=== PATIENT | female | born 1970 | race Caucasian/White ===

== ENCOUNTER 2019-02-03 01:37 | Inpatient (IN) | payer MEDICAID ==
[~2019-02-03] VITALS: Ht 160 cm; Wt 118.2 kg
[2019-02-03 03:00] VITALS: BP 153/92
[2019-02-03] MEDS ORDERED: OMEP40CA13 PO (03:00)
[2019-02-03] MEDS ORDERED: POTA8TAB8 PO (03:00)
[2019-02-03] MEDS ORDERED: FURO-149 PO (03:00)
[2019-02-03] MEDS ORDERED: ENAL20TA75 PO (03:00)
[2019-02-03] MEDS ORDERED: HYDR-4353 PO (03:00)
[2019-02-03] MEDS: normal saline 1000ml 1,000 ML IV SCH ×4 (03:06→23:06)
[2019-02-03] MEDS ORDERED: ondansetron/PF 4mg/2ml inj IV PRN (03:10)
[2019-02-03] MEDS ORDERED: potassium CL 10mEq/100ml bag 100 ML IV PRN ×2 (03:10)
[2019-02-03] MEDS ORDERED: mag hydrox/Alum hydrox/simeth 30ml oral suspension PO PRN (03:10)
[2019-02-03] MEDS ORDERED: potassium Cl 20 mEq SR tablet PO PRN ×2 (03:10)
[2019-02-03] MEDS ORDERED: magnesium Cl slow-release 64mg tablet PO PRN (03:10)
[2019-02-03] MEDS ORDERED: magnesium 2GM in 50ml NS 50 ML IV PRN (03:10)
[2019-02-03] MEDS ORDERED: acetaminophen 325mg tablet PO PRN (03:10)
[2019-02-03] MEDS ORDERED: magnesium 4gm in 100ml NS 100 ML IV PRN (03:10)
[2019-02-03] MEDS ORDERED: magnesium hydroxide 30ml (MOM) UD suspension PO PRN (03:10)
[2019-02-03 06:25] LABS: BASOPHILS % (AUTO) 0.3 % (0-1); EOSINOPHILS # (AUTO) 0.1 X10'3 (0-0.9); EOSINOPHILS % (AUTO) 1.1 % (0-6); HEMATOCRIT 35.3 % (35.0-45.0); LYMPHOCYTES # (AUTO) 1.1 X10'3 (1.1-4.8); LYMPHOCYTES % (AUTO) 17.4 % (21-51); MEAN CORPUSCULAR HEMOGLOBIN 33.7 PG (27.0-31.0); MEAN CORPUSCULAR HGB CONC 34.1 g/dL (33.0-36.5); MEAN CORPUSCULAR VOLUME 98.9 FL (78-98); MEAN PLATELET VOLUME 10.2 FL (7.4-10.4); MONOCYTES # (AUTO) 0.6 X10'3 (0-0.9); MONOCYTES % (AUTO) 9.9 % (2-12); NEUTROPHILS # (AUTO) 4.4 X10'3 (1.8-7.7); NEUTROPHILS % (AUTO) 71.3 % (42-75); PLATELET COUNT 84 X10'3 (140-440); RED BLOOD COUNT 3.57 X10'6 (4.20-5.60); RED CELL DISTRIBUTION WIDTH 19.4 % (11.5-14.5); WHITE BLOOD COUNT 6.2 X10'3 (4.5-11.0)
--- NOTE | 2019-02-03 06:26 | NUR ---
Patient in room NICK 358. I have received report from SARAH Villa and had the opportunity to ask questions and assume patient care.
[2019-02-03 06:28] LABS: ALANINE AMINOTRANSFERASE 23 U/L (12-78); ALBUMIN 1.7 G/DL (3.4-5.0); ALBUMIN/GLOBULIN RATIO 0.4 (1.1-1.5); ALKALINE PHOSPHATASE 113 IU/L (46-116); ANION GAP 7 (8-16); ASPARTATE AMINO TRANSFERASE 58 U/L (10-37); BILIRUBIN,TOTAL 3.3 MG/DL (0.1-1.0); BLOOD UREA NITROGEN 9 MG/DL (7-18); BUN/CREATININE RATIO 11.4 (6.6-38.0); CALCIUM 8.1 MG/DL (8.5-10.1); CHLORIDE 111 MMOL/L (99-107); CREATININE 0.79 MG/DL (0.40-0.90); GLUCOSE 88 MG/DL (70-104); POTASSIUM 3.7 MMOL/L (3.5-5.1); SODIUM 143 MMOL/L (135-145); TOTAL CARBON DIOXIDE 24.9 MMOL/L (24-32); TOTAL PROTEIN 6.3 G/DL (6.4-8.2); eGFR 77 ML/MIN
[2019-02-03 07:00] VITALS: BP 99/69
[2019-02-03] MEDS: K and/or MAG REPLACEMENT MC SCH (08:00)
[2019-02-03] MEDS: enoxaparin 40mg/0.4ml syringe SQ SCH (08:00)
[2019-02-03] MEDS: levoFLOXACIN-Levaquin 500mg/D5 100 ML IV SCH (08:57)
[2019-02-03 11:30] VITALS: BP 145/87
--- NOTE | 2019-02-03 13:24 | NUR ---
IR TEAM TO PATIENT BED SIDE SCANNED PATIENT ABD WITH ULTRA SOUND AND FOUND MINIMAL FLUID NOT ENOUGH FOR A PARACENTESIS PER DR ORTEGA FLOOR NURSE INFORMED
--- NOTE | 2019-02-03 18:09 | NUR ---
Problems reprioritized. Patient report given, questions answered & plan of care reviewed with SARAH Villa.
--- NOTE | 2019-02-03 18:56 | NUR ---
Patient in room NICK 358. I have received report from JESSICA SMITH and had the opportunity to ask questions and assume patient care.
[2019-02-03 19:00] VITALS: BP 148/98
--- NOTE | 2019-02-03 21:51 | NUR ---
Patient refused IV solution. She states having difficulty breathing and she is also edematoue bilateral.
[2019-02-04] VITALS: BP 136/79
--- NOTE | 2019-02-04 06:11 | NUR ---
Problems reprioritized. Patient report given, questions answered & plan of care reviewed with Nusrat RN. Patient slept wel and denied having pain. She is sleeping.
--- NOTE | 2019-02-04 06:15 | NUR ---
Patient in room NICK 358. I have received report from SARAH Villa and had the opportunity to ask questions and assume patient care.
[2019-02-04 06:16] LABS: BASOPHILS % (AUTO) 0.6 % (0-1); EOSINOPHILS # (AUTO) 0.1 X10'3 (0-0.9); EOSINOPHILS % (AUTO) 3.5 % (0-6); HEMATOCRIT 34.6 % (35.0-45.0); HEMOGLOBIN 11.6 g/dl (12.0-16.0); LYMPHOCYTES # (AUTO) 0.8 X10'3 (1.1-4.8); LYMPHOCYTES % (AUTO) 22.1 % (21-51); MEAN CORPUSCULAR HEMOGLOBIN 33.4 PG (27.0-31.0); MEAN CORPUSCULAR HGB CONC 33.5 g/dL (33.0-36.5); MEAN CORPUSCULAR VOLUME 99.7 FL (78-98); MEAN PLATELET VOLUME 10.1 FL (7.4-10.4); MONOCYTES # (AUTO) 0.4 X10'3 (0-0.9); MONOCYTES % (AUTO) 10.3 % (2-12); NEUTROPHILS # (AUTO) 2.3 X10'3 (1.8-7.7); NEUTROPHILS % (AUTO) 63.5 % (42-75); PLATELET COUNT 70 X10'3 (140-440); RED BLOOD COUNT 3.47 X10'6 (4.20-5.60); RED CELL DISTRIBUTION WIDTH 19.5 % (11.5-14.5); WHITE BLOOD COUNT 3.6 X10'3 (4.5-11.0)
[2019-02-04 06:24] LABS: ALANINE AMINOTRANSFERASE 21 U/L (12-78); ALBUMIN 1.6 G/DL (3.4-5.0); ALBUMIN/GLOBULIN RATIO 0.4 (1.1-1.5); ALKALINE PHOSPHATASE 105 IU/L (46-116); ANION GAP 5 (8-16); ASPARTATE AMINO TRANSFERASE 56 U/L (10-37); BILIRUBIN,TOTAL 2.7 MG/DL (0.1-1.0); BLOOD UREA NITROGEN 8 MG/DL (7-18); BUN/CREATININE RATIO 11.3 (6.6-38.0); CALCIUM 8.4 MG/DL (8.5-10.1); CHLORIDE 112 MMOL/L (99-107); CREATININE 0.71 MG/DL (0.40-0.90); GLUCOSE 82 MG/DL (70-104); MAGNESIUM 1.6 MG/DL (1.5-2.4); POTASSIUM 3.8 MMOL/L (3.5-5.1); SODIUM 144 MMOL/L (135-145); TOTAL CARBON DIOXIDE 27.2 MMOL/L (24-32); TOTAL PROTEIN 5.9 G/DL (6.4-8.2); eGFR 87 ML/MIN
[2019-02-04 08:00] VITALS: BP 144/77
[2019-02-04] MEDS: enoxaparin 40mg/0.4ml syringe SQ SCH (08:00)
[2019-02-04] MEDS: K and/or MAG REPLACEMENT MC SCH (08:00)
[2019-02-04] MEDS: levoFLOXACIN-Levaquin 500mg/D5 100 ML IV SCH (08:38)
[2019-02-04] MEDS ORDERED: CIPR-230 PO (09:43)
[2019-02-04 12:00] VITALS: BP 142/79
== END 2019-02-04 12:30 | disposition home or self-care (01) | DRG 465 ==
LOC: SUR 3N 01:37
PROVIDERS: ADMIT Family Medicine; ATTEND Internal Medicine
DX: N13.8 Other obstructive and reflux uropathy (principal); I12.0 Hypertensive chronic kidney disease with stage 5 chronic kidney disease or end stage renal disease; D69.59 Other secondary thrombocytopenia; K70.31 Alcoholic cirrhosis of liver with ascites; E66.01 Morbid (severe) obesity due to excess calories; E88.09 Other disorders of plasma-protein metabolism, not elsewhere classified; N18.6 End stage renal disease; K72.90 Hepatic failure, unspecified without coma; K80.20 Calculus of gallbladder without cholecystitis without obstruction; Z68.42 Body mass index [BMI] 45.0-49.9, adult; N20.0 Calculus of kidney; G47.33 Obstructive sleep apnea (adult) (pediatric); K21.9 Gastro-esophageal reflux disease without esophagitis; N13.9 Obstructive and reflux uropathy, unspecified; Z79.899 Other long term (current) drug therapy; Z80.0 Family history of malignant neoplasm of digestive organs; Z80.3 Family history of malignant neoplasm of breast; Z80.51 Family history of malignant neoplasm of kidney; Z80.52 Family history of malignant neoplasm of bladder; Z82.49 Family history of ischemic heart disease and other diseases of the circulatory system; Z90.710 Acquired absence of both cervix and uterus; Z80.9 Family history of malignant neoplasm, unspecified
CPT/HCPCS: 36415; 74018; 76705; 80053; 83735; 85025; 87081; 93971; G0378; J1956; J7030

== ENCOUNTER 2019-10-27 21:34 | Inpatient (IN) | payer MEDICAID ==
[~2019-10-27] VITALS: Ht 157.5 cm; Wt 97.7 kg
[~2019-10-27 21:34] MED LIST: ENAL20TA75 PO; FURO-149 PO; HYDR-4353 PO; OMEP40CA13 PO; POTA8TAB8 PO
--- NOTE | 2019-10-27 22:17 | NUR ---
VINICIUS WALLACE [phone]
[2019-10-27 22:27] LABS: BASOPHILS % (AUTO) 0.3 % (0-1); EOSINOPHILS % (AUTO) 0.5 % (0-6); HEMATOCRIT 34.1 % (35.0-45.0); HEMOGLOBIN 11.1 g/dl (12.0-16.0); LYMPHOCYTES # (AUTO) 0.4 X10'3 (1.1-4.8); LYMPHOCYTES % (AUTO) 6.7 % (21-51); MEAN CORPUSCULAR HEMOGLOBIN 31.2 PG (27.0-31.0); MEAN CORPUSCULAR HGB CONC 32.6 g/dL (33.0-36.5); MEAN CORPUSCULAR VOLUME 95.7 FL (78-98); MONOCYTES # (AUTO) 0.5 X10'3 (0-0.9); MONOCYTES % (AUTO) 7.2 % (2-12); NEUTROPHILS # (AUTO) 5.6 X10'3 (1.8-7.7); NEUTROPHILS % (AUTO) 85.3 % (42-75); PLATELET COUNT 81 X10'3 (140-440); RED BLOOD COUNT 3.57 X10'6 (4.20-5.60); RED CELL DISTRIBUTION WIDTH 18.5 % (11.5-14.5); WHITE BLOOD COUNT 6.6 X10'3 (4.5-11.0)
[2019-10-27 22:41] LABS: ALANINE AMINOTRANSFERASE 19 U/L (12-78); ALBUMIN 2.3 G/DL (3.4-5.0); ALKALINE PHOSPHATASE 111 IU/L (46-116); ANION GAP 7 (8-16); ASPARTATE AMINO TRANSFERASE 37 U/L (10-37); BILIRUBIN,TOTAL 5.3 MG/DL (0.1-1.0); BLOOD UREA NITROGEN 10 MG/DL (7-18); BUN/CREATININE RATIO 9.9 (6.6-38.0); CALCIUM 8.5 MG/DL (8.5-10.1); CHLORIDE 109 MMOL/L (99-107); CREATININE 1.01 MG/DL (0.40-0.90); GLUCOSE 105 MG/DL (70-104); POTASSIUM 4.2 MMOL/L (3.5-5.1); SODIUM 139 MMOL/L (135-145); TOTAL CARBON DIOXIDE 23.1 MMOL/L (24-32); eGFR 58 ML/MIN
[2019-10-27 22:47] LABS: ALBUMIN/GLOBULIN RATIO 0.5 (1.1-1.5); MAGNESIUM 1.6 MG/DL (1.5-2.4)
[2019-10-27] MEDS ORDERED: SPIR50TA5 PO (23:01)
[2019-10-27] MEDS ORDERED: DIPH25CA83 PO (23:01)
[2019-10-27] MEDS ORDERED: HYDROcodone/acetaminophen 10/325mg tab PO ONE (23:30)
[2019-10-28] MEDS ORDERED: ondansetron/PF 4mg/2ml inj IV PRN
[2019-10-28] MEDS ORDERED: ipratropium/albuterol 3ml nebule NEB PRN
[2019-10-28] MEDS ORDERED: acetaminophen 325mg tablet PO PRN ×2
[2019-10-28] MEDS ORDERED: potassium Cl 20 mEq SR tablet PO PRN ×2
[2019-10-28] MEDS ORDERED: magnesium hydroxide 30ml (MOM) UD suspension PO PRN
[2019-10-28] MEDS ORDERED: HYDROcodone/acetaminophen 5mg/325mg tablet PO PRN
[2019-10-28] MEDS ORDERED: mag hydrox/Alum hydrox/simeth 30ml oral suspension PO PRN
[2019-10-28] MEDS ORDERED: potassium CL 10mEq/100ml bag 100 ML IV PRN ×2
[2019-10-28 00:55] VITALS: BP 129/73
--- NOTE | 2019-10-28 00:55 | NUR ---
PATIENT ADMITTED TO ROOM 348A FROM ER FOR LARGE LEFT PLEURAL EFFUSION. PLACED COMFORTABLE IN BED VITAL SIGNS TAKEN AND RECORDED.
[2019-10-28] MEDS: piperacillin/tazo 3.375gm/50ml 50 ML IV SCH ×3 (01:29→16:22)
--- NOTE | 2019-10-28 03:30 | NUR ---
Patient in room NICK 348. I have received report from deanne Ortiz Rn and had the opportunity to ask questions and assume patient care. Addendum: 10/28/19 at 0409 by Estella Eldridge RN Amended: Links added.
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
--- NOTE | 2019-10-28 05:47 | NUR ---
resting eyes closed no changes.
[2019-10-28 06:02] LABS: BASOPHILS % (AUTO) 0.2 % (0-1); EOSINOPHILS # (AUTO) 0.1 X10'3 (0-0.9); HEMATOCRIT 30.2 % (35.0-45.0); HEMOGLOBIN 9.9 g/dl (12.0-16.0); LYMPHOCYTES # (AUTO) 0.3 X10'3 (1.1-4.8); LYMPHOCYTES % (AUTO) 5.5 % (21-51); MEAN CORPUSCULAR HEMOGLOBIN 31.4 PG (27.0-31.0); MEAN CORPUSCULAR HGB CONC 32.8 g/dL (33.0-36.5); MEAN CORPUSCULAR VOLUME 95.8 FL (78-98); MEAN PLATELET VOLUME 9.1 FL (7.4-10.4); MONOCYTES # (AUTO) 0.5 X10'3 (0-0.9); MONOCYTES % (AUTO) 9.5 % (2-12); NEUTROPHILS # (AUTO) 4.7 X10'3 (1.8-7.7); NEUTROPHILS % (AUTO) 83.8 % (42-75); PLATELET COUNT 65 X10'3 (140-440); RED BLOOD COUNT 3.16 X10'6 (4.20-5.60); RED CELL DISTRIBUTION WIDTH 18.8 % (11.5-14.5); WHITE BLOOD COUNT 5.6 X10'3 (4.5-11.0)
--- NOTE | 2019-10-28 06:15 | NUR ---
Patient in room NICK 348. I have received report from SARAH Soria and had the opportunity to ask questions and assume patient care.
[2019-10-28 06:30] VITALS: BP 137/86
--- NOTE | 2019-10-28 06:40 | NUR ---
Problems reprioritized. Patient report given, questions answered & plan of care reviewed with BERTHA SMITH. Addendum: 10/28/19 at 0641 by Estella Eldridge RN Amended: Links added.
[2019-10-28 06:44] LABS: ALANINE AMINOTRANSFERASE 19 U/L (12-78); ALKALINE PHOSPHATASE 96 IU/L (46-116); ANION GAP 9 (8-16); ASPARTATE AMINO TRANSFERASE 32 U/L (10-37); BILIRUBIN,TOTAL 4.9 MG/DL (0.1-1.0); BLOOD UREA NITROGEN 11 MG/DL (7-18); C-REACTIVE PROTEIN 1.06 MG/DL (0.0-0.5); CALCIUM 8.5 MG/DL (8.5-10.1); CHLORIDE 108 MMOL/L (99-107); CREATININE 0.92 MG/DL (0.40-0.90); GLUCOSE 119 MG/DL (70-104); LACTATE DEHYDROGENASE 209 U/L (81-234); SODIUM 138 MMOL/L (135-145); TOTAL CARBON DIOXIDE 21.2 MMOL/L (24-32); eGFR 65 ML/MIN
[2019-10-28 07:00] LABS: ALBUMIN/GLOBULIN RATIO 0.5 (1.1-1.5); TOTAL PROTEIN 6.3 G/DL (6.4-8.2)
[2019-10-28] MEDS: pantoprazole 40mg Tablet.DR PO SCH (08:34)
[2019-10-28] MEDS: spironolactone 50 MG tablet PO SCH (08:35)
[2019-10-28] MEDS: HYDROcodone/acetaminophen 10/325mg tab PO PRN ×2 (08:36→13:24)
[2019-10-28] MEDS: K and/or MAG REPLACEMENT MC SCH ×2 (09:15→20:54)
[2019-10-28] MEDS ORDERED: magnesium Cl slow-release 64mg tablet PO PRN (09:50)
[2019-10-28] MEDS ORDERED: phytonadione inj. 10 MG in normal saline 100ml IV soln 99 ML IV ONE (09:50)
[2019-10-28] MEDS ORDERED: K and/or MAG REPLACEMENT MC SCH (09:50)
[2019-10-28] MEDS ORDERED: magnesium 4gm in 100ml NS 100 ML IV PRN (09:50)
[2019-10-28] MEDS ORDERED: pneumococcal 23-VAL P-sac vacc 25 mcg/0.5ml vial IMVAC ONE (10:00)
[2019-10-28] MEDS: azithromycin 250mg tablet PO SCH (10:56)
[2019-10-28 11:00] VITALS: BP 143/88
[2019-10-28 11:08] VITALS: BP 157/94
[2019-10-28 11:20] VITALS: BP 143/88
[2019-10-28 12:01] LABS: GLUCOSE,BODY FLUID 119 MG/DL; LDH,BODY FLUID 42 U/L
[2019-10-28 12:11] LABS: BFSOURCE LEFT PLEURAL FLD; PLEURAL FLUID PH 7.507 (7.63-7.65)
[2019-10-28 12:12] LABS: BF RBC COUNT 7275 /CU MM; BF WBC COUNT 88 /CU MM (0-1000); BFAPPEAR CLOUDY; BFCOLOR AMBER; BFVOLUME 55 ML
[2019-10-28 12:21] LABS: LYMPHOCYTES,BODY FLUID 60 %; MONOCYTES,BODY FLUID 35 %; NEUTROPHILS,BODY FLUID 5 %
[2019-10-28 12:22] LABS: BF MESOTHELIAL CELLS MODERATE; TOTAL PROTEIN,BODY FLUID < 2.0 G/DL
[2019-10-28 18:00] VITALS: BP 149/90
--- NOTE | 2019-10-28 18:30 | NUR ---
Problems reprioritized. Patient report given, questions answered & plan of care reviewed with SARAH Jim.
[2019-10-28] MEDS ORDERED: diphenhydrAMINE 25mg capsule PO SCH (21:00)
[2019-10-28] MEDS: lactobacillus rhamnosus 10,000 MMU CELLS/CAPSULE PO SCH (21:08)
[2019-10-29] VITALS: BP 118/67
[2019-10-29] MEDS: piperacillin/tazo 3.375gm/50ml 50 ML IV SCH ×2 (00:24→08:09)
[2019-10-29 05:10] LABS: BASOPHILS % (AUTO) 0.8 % (0-1); EOSINOPHILS # (AUTO) 0.3 X10'3 (0-0.9); EOSINOPHILS % (AUTO) 8.2 % (0-6); HEMATOCRIT 27.3 % (35.0-45.0); HEMOGLOBIN 8.9 g/dl (12.0-16.0); LYMPHOCYTES # (AUTO) 0.7 X10'3 (1.1-4.8); LYMPHOCYTES % (AUTO) 19.5 % (21-51); MEAN CORPUSCULAR HEMOGLOBIN 30.9 PG (27.0-31.0); MEAN CORPUSCULAR HGB CONC 32.7 g/dL (33.0-36.5); MEAN CORPUSCULAR VOLUME 94.3 FL (78-98); MONOCYTES # (AUTO) 0.5 X10'3 (0-0.9); MONOCYTES % (AUTO) 14.6 % (2-12); NEUTROPHILS % (AUTO) 56.9 % (42-75); PLATELET COUNT 56 X10'3 (140-440); RED BLOOD COUNT 2.89 X10'6 (4.20-5.60); RED CELL DISTRIBUTION WIDTH 18.6 % (11.5-14.5); WHITE BLOOD COUNT 3.6 X10'3 (4.5-11.0)
[2019-10-29 05:20] LABS: ALANINE AMINOTRANSFERASE 14 U/L (12-78); ALBUMIN 1.8 G/DL (3.4-5.0); ALBUMIN/GLOBULIN RATIO 0.5 (1.1-1.5); ALKALINE PHOSPHATASE 93 IU/L (46-116); ANION GAP 3 (8-16); ASPARTATE AMINO TRANSFERASE 27 U/L (10-37); BILIRUBIN,TOTAL 3.7 MG/DL (0.1-1.0); BLOOD UREA NITROGEN 9 MG/DL (7-18); BUN/CREATININE RATIO 10.8 (6.6-38.0); CALCIUM 8.4 MG/DL (8.5-10.1); CHLORIDE 109 MMOL/L (99-107); CREATININE 0.83 MG/DL (0.40-0.90); GLUCOSE 89 MG/DL (70-104); MAGNESIUM 1.6 MG/DL (1.5-2.4); PHOSPHORUS 2.2 MG/DL (2.3-4.5); POTASSIUM 3.7 MMOL/L (3.5-5.1); SODIUM 138 MMOL/L (135-145); TOTAL CARBON DIOXIDE 26.5 MMOL/L (24-32); TOTAL PROTEIN 5.6 G/DL (6.4-8.2); eGFR 73 ML/MIN
--- NOTE | 2019-10-29 06:26 | NUR ---
Problems reprioritized. Patient report given, questions answered & plan of care reviewed with Airam SMITH. Addendum: 10/29/19 at 0627 by Diandra Mendoza RN Amended: Links added.
[2019-10-29 06:30] VITALS: BP 125/75
--- NOTE | 2019-10-29 06:30 | NUR ---
Patient in room NICK 348. I have received report from SARAH Jim and had the opportunity to ask questions and assume patient care.
[2019-10-29] MEDS: K and/or MAG REPLACEMENT MC SCH (06:36)
[2019-10-29] MEDS: spironolactone 50 MG tablet PO SCH (08:09)
[2019-10-29] MEDS: lactobacillus rhamnosus 10,000 MMU CELLS/CAPSULE PO SCH (08:09)
[2019-10-29] MEDS: pantoprazole 40mg Tablet.DR PO SCH (08:09)
[2019-10-29] MEDS: azithromycin 250mg tablet PO SCH (08:10)
--- NOTE | 2019-10-29 09:30 | NUR ---
Problems reprioritized. Patient report given, questions answered & plan of care reviewed with SARAH Leon.
[2019-10-29 11:00] VITALS: BP 120/70
[2019-10-29] MEDS ORDERED: LACT1CAP26 PO (12:11)
[2019-10-29] MEDS ORDERED: AZI25OT PO (12:11)
[2019-10-29] MEDS ORDERED: AMOX-419 PO (12:11)
[2019-10-29] MEDS ORDERED: PHYT100T PO (12:13)
--- NOTE | 2019-10-29 15:18 | NUR ---
DC INSTRUCTIONS GIVEN, IV REMOVED, PT TOLERATED WELL, NO COMPLICATION. IS AND FLUTTER VALVE GIVEN TO PT AND EDUCATED ON USE, PT DC IN STABLE CONDITION
[2019-10-29] MEDS ORDERED: PROP10TA10 PO (18:02)
== END 2019-10-29 15:15 | disposition home or self-care (01) | DRG 720 ==
LOC: ER 21:34 → ED HOLD 23:59 → SUR 3N 10-28 00:50
PROVIDERS: ADMIT Family Medicine; ATTEND Family Medicine
PROC: 0W9B3ZZ Drainage of Left Pleural Cavity, Percutaneous Approach (ICD-10-PCS; principal; 2019-10-27)
DX: A41.9 Sepsis, unspecified organism (principal); J96.01 Acute respiratory failure with hypoxia; J91.8 Pleural effusion in other conditions classified elsewhere; J18.9 Pneumonia, unspecified organism; D68.9 Coagulation defect, unspecified; E44.0 Moderate protein-calorie malnutrition; K76.6 Portal hypertension; D69.59 Other secondary thrombocytopenia; I11.0 Hypertensive heart disease with heart failure; I50.9 Heart failure, unspecified; F10.20 Alcohol dependence, uncomplicated; G47.33 Obstructive sleep apnea (adult) (pediatric); K21.9 Gastro-esophageal reflux disease without esophagitis; Z20.828 Contact with and (suspected) exposure to other viral communicable diseases; K44.9 Diaphragmatic hernia without obstruction or gangrene; K70.30 Alcoholic cirrhosis of liver without ascites; K72.90 Hepatic failure, unspecified without coma; N13.9 Obstructive and reflux uropathy, unspecified; Z79.899 Other long term (current) drug therapy; Z80.0 Family history of malignant neoplasm of digestive organs; Z80.3 Family history of malignant neoplasm of breast; Z80.51 Family history of malignant neoplasm of kidney; Z80.52 Family history of malignant neoplasm of bladder; Z82.49 Family history of ischemic heart disease and other diseases of the circulatory system; Z87.442 Personal history of urinary calculi; Z90.710 Acquired absence of both cervix and uterus; Z28.21 Immunization not carried out because of patient refusal; Z88.5 Allergy status to narcotic agent; Z91.040 Latex allergy status; Z98.51 Tubal ligation status; Z68.39 Body mass index [BMI] 39.0-39.9, adult
CPT/HCPCS: 32555; 36415; 71045; 80053; 82945; 83605; 83615; 83735; 83880; 83986; 84100; 84145; 84157; 84484; 85025; 85610; 86140; 87040; 87070; 87075; 87081; 87102; 89051; 90732; 94760; 97110; 97161; 97530; 99285; G0378; J2543; J3430; Q0163

== ENCOUNTER 2020-02-11 12:34 | Inpatient (IN) | payer MEDICAID ==
[~2020-02-11] VITALS: Ht 157.5 cm; Wt 112.5 kg
[~2020-02-11 12:34] MED LIST changes: +AZI25OT PO; +DIPH25CA83 PO; -ENAL20TA75 PO; +LACT1CAP26 PO; +PHYT100T PO; -POTA8TAB8 PO; +PROP10TA10 PO; +SPIR50TA5 PO
[2020-02-11 13:28] LABS: ALANINE AMINOTRANSFERASE 43 U/L (12-78); ALBUMIN 2.2 G/DL (3.4-5.0); ALKALINE PHOSPHATASE 127 IU/L (46-116); ANION GAP 6 (8-16); ASPARTATE AMINO TRANSFERASE 48 U/L (10-37); BILIRUBIN,TOTAL 8.9 MG/DL (0.1-1.0); BLOOD UREA NITROGEN 13 MG/DL (7-18); BUN/CREATININE RATIO 10.7 (6.6-38.0); CALCIUM 9.4 MG/DL (8.5-10.1); CHLORIDE 98 MMOL/L (99-107); CREATININE 1.22 MG/DL (0.40-0.90); GLUCOSE 106 MG/DL (70-104); POTASSIUM 4.3 MMOL/L (3.5-5.1); SODIUM 130 MMOL/L (135-145); TOTAL CARBON DIOXIDE 26.3 MMOL/L (24-32); eGFR 47 ML/MIN
[2020-02-11 13:36] LABS: TROPONIN I < 0.04 NG/ML (0.0-0.05)
[2020-02-11 13:37] LABS: ALBUMIN/GLOBULIN RATIO 0.5 (1.1-1.5); TOTAL PROTEIN 6.7 G/DL (6.4-8.2)
[2020-02-11] MEDS ORDERED: ondansetron/PF 4mg/2ml inj IV ONE (13:50)
[2020-02-11] MEDS ORDERED: fentaNYL/PF 50MCG/1 ML 2ML syringe IV ONE ×2 (13:50→15:25)
[2020-02-11 13:56] LABS: LYMPHOCYTES # (AUTO) 0.4 X10'3 (1.1-4.8); LYMPHOCYTES % (AUTO) 2.6 % (21-51); MEAN PLATELET VOLUME 9.9 FL (7.4-10.4); NEUTROPHILS # (AUTO) 12.7 X10'3 (1.8-7.7)
[2020-02-11 13:57] LABS: BASOPHILS % (AUTO) 0.1 % (0-1); EOSINOPHILS % (AUTO) 0.2 % (0-6); HEMATOCRIT 35.3 % (35.0-45.0); HEMOGLOBIN 11.8 g/dl (12.0-16.0); MEAN CORPUSCULAR HEMOGLOBIN 34.2 PG (27.0-31.0); MEAN CORPUSCULAR HGB CONC 33.5 g/dL (33.0-36.5); MEAN CORPUSCULAR VOLUME 102.1 FL (78-98); MONOCYTES # (AUTO) 1.1 X10'3 (0-0.9); MONOCYTES % (AUTO) 7.7 % (2-12); NEUTROPHILS % (AUTO) 89.4 % (42-75); PLATELET COUNT 67 X10'3 (140-440); RED BLOOD COUNT 3.46 X10'6 (4.20-5.60); RED CELL DISTRIBUTION WIDTH 24.5 % (11.5-14.5); WHITE BLOOD COUNT 14.2 X10'3 (4.5-11.0)
[2020-02-11 14:13] LABS: ANISOCYTOSIS 3+; PLATELET ESTIMATE DECREASED; TOTAL CELLS COUNTED 100
[2020-02-11 14:14] LABS: BURR CELLS 1+; POLYCHROMASIA 1+; ROULEAUX 1+; TARGET CELLS FEW; TOXIC GRANULATION 1+; TOXIC VACUOLATION FEW
--- NOTE | 2020-02-11 16:54 | NUR ---
Notified [facility] of BP of 79/42 as well as continued severe pain. Albumin to be ordered for BP. Pain medication to be addressed as soon as BP improves.
[2020-02-11] MEDS ORDERED: LORazepam 2 mg/ml vial IV ONE (16:55)
[2020-02-11] MEDS ORDERED: albumin (human) 25% 100 ML IV solution IV ONE (16:55)
[2020-02-11] MEDS ORDERED: CefTRIAXone/D5W-Rocephin 1gm 50 ML IV ONE (17:20)
[2020-02-11 17:26] LABS: CLARITY,URINE CLOUDY (Clear); COLOR,URINE BROWN (Yellow); GLUCOSE, URINE NEGATIVE (Neg); KETONES,URINE NEGATIVE (Neg); LEUKOCYTE ESTERASE ,URINE MODERATE (Neg); NITRITES, URINE NEGATIVE (Neg); OCCULT BLOOD,URINE LARGE (Neg); PH,URINE 5.5 (4.8-8.0); PROTEIN,URINE 100 mg/dl (Neg)
[2020-02-11 17:27] LABS: UA COLLECTION TYPE OTHER
[2020-02-11 17:32] LABS: BACTERIA,URINE 2+ /HPF (Neg); CAL OXALATE CRYSTALS 2+ /HPF (NEGATIVE); MUCUS STRANDS MODERATE /LPF (Neg); RBC,URINE TNTC /HPF (0-2); SQUAMOUS EPITHELIAL CELL,UR MANY /LPF (FEW); WBC CLUMPS,URINE MODERATE /HPF (NEGATIVE); WBC,URINE TNTC /HPF (0-4)
[2020-02-11] MEDS ORDERED: potassium CL 10mEq/100ml bag 100 ML IV PRN ×2 (17:40)
[2020-02-11] MEDS ORDERED: magnesium Cl slow-release 64mg tablet PO PRN (17:40)
[2020-02-11] MEDS ORDERED: ondansetron/PF 4mg/2ml inj IV PRN (17:40)
[2020-02-11] MEDS ORDERED: mag hydrox/Alum hydrox/simeth 30ml oral suspension PO PRN (17:40)
[2020-02-11] MEDS ORDERED: bisacodyl 10mg suppository rectal RC PRN (17:40)
[2020-02-11] MEDS ORDERED: metoclopramide 5 mg/ml inj IV PRN (17:40)
[2020-02-11] MEDS ORDERED: magnesium hydroxide 30ml (MOM) UD suspension PO PRN (17:40)
[2020-02-11] MEDS ORDERED: magnesium 2GM in 50ml NS 50 ML IV PRN (17:40)
[2020-02-11] MEDS ORDERED: magnesium 4gm in 100ml NS 100 ML IV PRN (17:40)
[2020-02-11] MEDS ORDERED: potassium Cl 20 mEq SR tablet PO PRN ×2 (17:40)
[2020-02-11] MEDS: HYDROmorphone inj. 0.5 MG/0.5 ML DISP.SYRIN IV PRN (19:05)
--- NOTE | 2020-02-11 19:30 | NUR ---
Patient in room PCU 3015. I have received report from Cap RN and had the opportunity to ask questions and assume patient care.
--- NOTE | 2020-02-11 19:45 | NUR ---
Patient arrived on unit Alert and oriented and in extreme pain. Telemetry monitoring applied and vital signs obtained- hr 86, 25 RR, 98% O2, 116/62, temp 98.4 Will continue to monitor and assess closely.
[2020-02-11] MEDS: K and/or MAG REPLACEMENT MC SCH (20:00)
[2020-02-11] MEDS ORDERED: propranolol 10mg tablet PO SCH (20:00)
[2020-02-11] MEDS ORDERED: SUCR1TAB PO (20:24)
[2020-02-11] MEDS ORDERED: MELA10TA2 PO (20:25)
[2020-02-11] MEDS ORDERED: FERR-106 PO (20:26)
[2020-02-11] MEDS ORDERED: LACT10SO PO (20:27)
[2020-02-11] MEDS: furosemide 20 MG/2 ML vial IV SCH (20:35)
[2020-02-11] MEDS: lactobacillus rhamnosus 10,000 MMU CELLS/CAPSULE PO SCH (20:35)
[2020-02-11] MEDS ORDERED: diphenhydrAMINE 25mg capsule PO SCH (21:00)
[2020-02-11] MEDS ORDERED: temazepam 15mg capsule PO PRN (21:00)
[2020-02-11 22:00] VITALS: BP 105/60
[2020-02-11] MEDS: HYDROmorphone 1 mg/ml syringe IV PRN (23:47)
[2020-02-12] VITALS (8 sets, daily range): BP systolic 93–111; BP diastolic 41–73
--- NOTE | 2020-02-12 00:27 | NUR ---
Patient got up to urinate and upon emptying the commode the urine appeared red/brown sludgey. Patient stated did not have bowel movement. Notified Dr Boss. Will continue to monitor closely. PAGER ID: [phone] MESSAGE: [id number] [place] Patient urine is dark red/brown and sludgey. Pt stated current kidney stone and UTI. Just wanted to inform you! Suyapa SMITH ext [phone]
[2020-02-12] MEDS: HYDROmorphone 1 mg/ml syringe IV PRN ×2 (04:10→09:37)
--- NOTE | 2020-02-12 06:00 | NUR ---
Patient in room PCU 3015. I have received report from jefferson and had the opportunity to ask questions and assume patient care.
--- NOTE | 2020-02-12 06:20 | NUR ---
Problems reprioritized. Patient report given, questions answered & plan of care reviewed with Alice SMITH and Teresita SMITH.
[2020-02-12 06:31] LABS: HEMOGLOBIN 10.7 g/dl (12.0-16.0); LYMPHOCYTES # (AUTO) 0.6 X10'3 (1.1-4.8); MEAN CORPUSCULAR HEMOGLOBIN 35.5 PG (27.0-31.0)
[2020-02-12 06:32] LABS: BASOPHILS # (AUTO) 0.1 X10'3 (0-0.2); BASOPHILS % (AUTO) 0.4 % (0-1); EOSINOPHILS % (AUTO) 0.1 % (0-6); HEMATOCRIT 31.2 % (35.0-45.0); MEAN CORPUSCULAR HGB CONC 34.2 g/dL (33.0-36.5); MEAN CORPUSCULAR VOLUME 103.6 FL (78-98); MEAN PLATELET VOLUME 9.8 FL (7.4-10.4); MONOCYTES # (AUTO) 0.8 X10'3 (0-0.9); MONOCYTES % (AUTO) 5.6 % (2-12); NEUTROPHILS # (AUTO) 13.1 X10'3 (1.8-7.7); NEUTROPHILS % (AUTO) 89.9 % (42-75); PLATELET COUNT 54 X10'3 (140-440); RED BLOOD COUNT 3.02 X10'6 (4.20-5.60); WHITE BLOOD COUNT 14.6 X10'3 (4.5-11.0)
[2020-02-12 06:55] LABS: ALANINE AMINOTRANSFERASE 34 U/L (12-78); ALBUMIN 2.2 G/DL (3.4-5.0); ALKALINE PHOSPHATASE 95 IU/L (46-116); ANION GAP 8 (8-16); ASPARTATE AMINO TRANSFERASE 37 U/L (10-37); BILIRUBIN,TOTAL 11.7 MG/DL (0.1-1.0); BLOOD UREA NITROGEN 25 MG/DL (7-18); BUN/CREATININE RATIO 17.4 (6.6-38.0); CALCIUM 9.7 MG/DL (8.5-10.1); CHLORIDE 97 MMOL/L (99-107); CREATININE 1.44 MG/DL (0.40-0.90); GLUCOSE 119 MG/DL (70-104); MAGNESIUM 2.1 MG/DL (1.5-2.4); POTASSIUM 4.8 MMOL/L (3.5-5.1); SODIUM 128 MMOL/L (135-145); TOTAL CARBON DIOXIDE 22.7 MMOL/L (24-32); eGFR 39 ML/MIN
[2020-02-12 06:58] LABS: ALBUMIN/GLOBULIN RATIO 0.6 (1.1-1.5); TOTAL PROTEIN 6.1 G/DL (6.4-8.2)
[2020-02-12 07:38] LABS: ANISOCYTOSIS 3+; PLATELET ESTIMATE DECREASED
[2020-02-12] MEDS: K and/or MAG REPLACEMENT MC SCH ×2 (08:00→20:00)
[2020-02-12] MEDS: furosemide 20 MG/2 ML vial IV SCH ×2 (09:24→19:45)
[2020-02-12] MEDS: CefTRIAXone/D5W-Rocephin 1gm 50 ML IV SCH (09:24)
[2020-02-12] MEDS: lactobacillus rhamnosus 10,000 MMU CELLS/CAPSULE PO SCH ×2 (09:25→19:44)
[2020-02-12] MEDS: pantoprazole 40mg Tablet.DR PO SCH (09:25)
[2020-02-12] MEDS: spironolactone 50 MG tablet PO SCH (09:26)
--- NOTE | 2020-02-12 11:00 | NUR ---
Malnutrition Consult: Pt admit w/ end stage liver disease, ascites, hx etoh cirrhosis DX pleural effusion s/p 1200cc thoracentesis per MD. S/p paracentesis today pending procedure note for volume taken. Pt has mild weakness, skin intact, BMI 44 w/ no scaled wt this admit or accurate scaled wt hx, and PO pending at this time. BLE 3+ edema present only criteria for malnutrition at this time; pt at higher risk for nutrition deficiency given DX. At this time pt does not meet minimum malnutrition criteria. Will recommend ensure high protein TIDWM for additional protein needs and monitor for PO hx as well as additional criteria this admit. MD notified. Addendum: 02/12/20 at [address] Amended: Links added. Addendum: 02/12/20 at [address] F/u: MCV 103.6; SULLY ayala/w RN regarding folic and B12 supplementation if MD agreeable
[2020-02-12] MEDS ORDERED: albumin (human) 25% 100 ML IV solution IV ONE (11:30)
--- NOTE | 2020-02-12 12:58 | NUR ---
promotional table spacer PAGER ID: [phone] MESSAGE: Maverick 369MisaNick. Positive Blood culture aerobic bottle, gram + cocci in pairs, R arm drawn on 02/10. Thank you, Teresita
--- NOTE | 2020-02-12 18:17 | NUR ---
Problems reprioritized. Patient report given, questions answered & plan of care reviewed with Suyapa SMITH. Patient stable at transfer of care.
--- NOTE | 2020-02-12 18:20 | NUR ---
Orientee documentation: I have reviewed and agree with interventions, assessments performed and documented by Alice SMITH. Orientee Medication Administration: For this medication-pass time frame, medication were reviewed, dispensed, administered and documented per hospital policy by Alice SMITH .
--- NOTE | 2020-02-12 18:21 | NUR ---
Problems reprioritized. Patient report given, questions answered & plan of care reviewed with Suyapa.
--- NOTE | 2020-02-12 19:09 | NUR ---
Patient in room PCU 3015. I have received report from Teresita SMITH and Alice SMITH and had the opportunity to ask questions and assume patient care.
[2020-02-12] MEDS: HYDROmorphone inj. 0.5 MG/0.5 ML DISP.SYRIN IV PRN (22:23)
[2020-02-12 23:13] LABS: CLARITY,URINE CLOUDY (Clear); COLOR,URINE AMBER (Yellow); GLUCOSE, URINE NEGATIVE (Neg); KETONES,URINE NEGATIVE (Neg); LEUKOCYTE ESTERASE ,URINE MODERATE (Neg); NITRITES, URINE NEGATIVE (Neg); OCCULT BLOOD,URINE LARGE (Neg); PH,URINE 5.5 (4.8-8.0); PROTEIN,URINE 100 mg/dl (Neg)
[2020-02-12 23:22] LABS: UA COLLECTION TYPE URINAL
[2020-02-12 23:24] LABS: RBC,URINE TNTC /HPF (0-2); WBC,URINE 30-50 /HPF (0-4)
[2020-02-12 23:25] LABS: BACTERIA,URINE 1+ /HPF (Neg); MUCUS STRANDS FEW /LPF (Neg); SQUAMOUS EPITHELIAL CELL,UR FEW /LPF (FEW)
[2020-02-13 02:00] VITALS: BP 98/44
[2020-02-13 05:34] LABS: BASOPHILS % (AUTO) 0.3 % (0-1); EOSINOPHILS # (AUTO) 0.1 X10'3 (0-0.9); EOSINOPHILS % (AUTO) 1.7 % (0-6); HEMATOCRIT 26.8 % (35.0-45.0); HEMOGLOBIN 9.2 g/dl (12.0-16.0); LYMPHOCYTES # (AUTO) 0.4 X10'3 (1.1-4.8); MEAN CORPUSCULAR HEMOGLOBIN 35.2 PG (27.0-31.0); MEAN CORPUSCULAR HGB CONC 34.3 g/dL (33.0-36.5); MEAN CORPUSCULAR VOLUME 102.9 FL (78-98); MEAN PLATELET VOLUME 9.9 FL (7.4-10.4); MONOCYTES # (AUTO) 0.6 X10'3 (0-0.9); NEUTROPHILS # (AUTO) 4.3 X10'3 (1.8-7.7); RED BLOOD COUNT 2.61 X10'6 (4.20-5.60); WHITE BLOOD COUNT 5.5 X10'3 (4.5-11.0)
[2020-02-13 05:37] LABS: ALANINE AMINOTRANSFERASE 26 U/L (12-78); ALBUMIN/GLOBULIN RATIO 0.6 (1.1-1.5); ALKALINE PHOSPHATASE 83 IU/L (46-116); ANION GAP 3 (8-16); ASPARTATE AMINO TRANSFERASE 26 U/L (10-37); BILIRUBIN,TOTAL 6.5 MG/DL (0.1-1.0); BLOOD UREA NITROGEN 29 MG/DL (7-18); BUN/CREATININE RATIO 15.6 (6.6-38.0); CALCIUM 9.4 MG/DL (8.5-10.1); CHLORIDE 98 MMOL/L (99-107); CREATININE 1.86 MG/DL (0.40-0.90); GLUCOSE 96 MG/DL (70-104); POTASSIUM 4.6 MMOL/L (3.5-5.1); SODIUM 128 MMOL/L (135-145); TOTAL CARBON DIOXIDE 26.7 MMOL/L (24-32); TOTAL PROTEIN 5.1 G/DL (6.4-8.2); eGFR 29 ML/MIN
[2020-02-13 05:49] LABS: PLATELET COUNT 43 X10'3 (140-440)
--- NOTE | 2020-02-13 05:51 | NUR ---
Dr Boss paged PAGER ID: [phone] MESSAGE: [id number] [address] Critical lab value- ptt 43 Suyapa SMITH PCU
--- NOTE | 2020-02-13 05:53 | NUR ---
PAGER ID: [phone] MESSAGE: [id number] [address] Correction for critical- it was for platlets not ptt. Suyapa SMITH
--- NOTE | 2020-02-13 06:04 | NUR ---
Problems reprioritized. Patient report given, questions answered & plan of care reviewed with Teresita SMITH and Alice SMITH.
[2020-02-13 06:41] LABS: PLATELET ESTIMATE DECREASED
[2020-02-13 06:42] LABS: ANISOCYTOSIS 3+
--- NOTE | 2020-02-13 06:49 | NUR ---
Rm 3015A, Nick. DAVID pos. blood culture, anaerobic gram+ cocci in chains. PT. currently on Rocephin. Alcie [phone]
[2020-02-13 07:00] VITALS: BP 98/55
[2020-02-13] MEDS: K and/or MAG REPLACEMENT MC SCH ×2 (08:00→19:11)
[2020-02-13] MEDS: furosemide 20 MG/2 ML vial IV SCH (09:11)
[2020-02-13] MEDS: pantoprazole 40mg Tablet.DR PO SCH (09:11)
[2020-02-13] MEDS: spironolactone 50 MG tablet PO SCH (09:12)
[2020-02-13] MEDS: lactobacillus rhamnosus 10,000 MMU CELLS/CAPSULE PO SCH ×2 (09:13→19:46)
[2020-02-13] MEDS: CefTRIAXone/D5W-Rocephin 1gm 50 ML IV SCH (09:14)
--- NOTE | 2020-02-13 10:19 | NUR ---
RM 8213R, Nick. pt. having pain and extremely diminished lung sounds on the Left lower lobe. Pt had thora on 02/11/20, would you like me to order a chest xray? Alice/ Teresita 7514
[2020-02-13 11:00] VITALS: BP 101/57
[2020-02-13 15:00] VITALS: BP 100/55
[2020-02-13 18:00] VITALS: BP 113/50
--- NOTE | 2020-02-13 18:27 | NUR ---
Orientee documentation: I have reviewed and agree with interventions, assessments performed and documented by Alice SMITH. Orientee Medication Administration: For this medication-pass time frame, medication were reviewed, dispensed, administered and documented per hospital policy by Alice SMITH.
--- NOTE | 2020-02-13 18:27 | NUR ---
Problems reprioritized. Patient report given, questions answered & plan of care reviewed with Spring SMITH. Patient stable at transfer of care.
--- NOTE | 2020-02-13 18:31 | NUR ---
Patient in room PCU 3015. I have received report from Teresita SMITH and Alice SMITH and had the opportunity to ask questions and assume patient care.
[2020-02-13] MEDS: furosemide 20MG tablet PO SCH (19:45)
[2020-02-13 22:00] VITALS: BP 100/48
[2020-02-14] VITALS (8 sets, daily range): BP systolic 97–120; BP diastolic 42–70
[2020-02-14] MEDS: oxyCODONE IR 5mg (immed. release) tablet PO PRN ×4 (01:01→20:52)
[2020-02-14 05:59] LABS: BASOPHILS % (AUTO) 0.7 % (0-1); EOSINOPHILS # (AUTO) 0.1 X10'3 (0-0.9); EOSINOPHILS % (AUTO) 2.9 % (0-6); HEMATOCRIT 28.2 % (35.0-45.0); HEMOGLOBIN 9.6 g/dl (12.0-16.0); LYMPHOCYTES # (AUTO) 0.4 X10'3 (1.1-4.8); LYMPHOCYTES % (AUTO) 10.1 % (21-51); MEAN CORPUSCULAR VOLUME 103.2 FL (78-98); MEAN PLATELET VOLUME 9.5 FL (7.4-10.4); MONOCYTES # (AUTO) 0.5 X10'3 (0-0.9); NEUTROPHILS % (AUTO) 73.3 % (42-75); RED BLOOD COUNT 2.73 X10'6 (4.20-5.60); RED CELL DISTRIBUTION WIDTH 23.2 % (11.5-14.5); WHITE BLOOD COUNT 4.1 X10'3 (4.5-11.0)
[2020-02-14 06:04] LABS: PLATELET COUNT 47 X10'3 (140-440)
[2020-02-14 06:14] LABS: ALANINE AMINOTRANSFERASE 29 U/L (12-78); ALBUMIN 1.9 G/DL (3.4-5.0); ALKALINE PHOSPHATASE 91 IU/L (46-116); ANION GAP 5 (8-16); ASPARTATE AMINO TRANSFERASE 36 U/L (10-37); BILIRUBIN,TOTAL 4.9 MG/DL (0.1-1.0); BLOOD UREA NITROGEN 29 MG/DL (7-18); BUN/CREATININE RATIO 18.6 (6.6-38.0); CALCIUM 9.1 MG/DL (8.5-10.1); CHLORIDE 100 MMOL/L (99-107); CREATININE 1.56 MG/DL (0.40-0.90); GLUCOSE 93 MG/DL (70-104); MAGNESIUM 1.9 MG/DL (1.5-2.4); POTASSIUM 4.5 MMOL/L (3.5-5.1); SODIUM 131 MMOL/L (135-145); TOTAL CARBON DIOXIDE 26.1 MMOL/L (24-32); eGFR 35 ML/MIN
[2020-02-14 06:17] LABS: ALBUMIN/GLOBULIN RATIO 0.6 (1.1-1.5); TOTAL PROTEIN 5.3 G/DL (6.4-8.2)
--- NOTE | 2020-02-14 06:26 | NUR ---
Patient in room PCU 3015. I have received report from Spring SMITH and had the opportunity to ask questions and assume patient care. Patient awake in bed and resting comfortably. In no acute distress. All immediate needs met at this time.
--- NOTE | 2020-02-14 06:28 | NUR ---
PAGER ID: [phone] MESSAGE: Patient [address] RM [id number] Critical platelet count of 47. Yesterday was 43. Thanks. Spring SMITH ext. [phone]
--- NOTE | 2020-02-14 06:37 | NUR ---
Patient in room PCU 3015. I have received report from Spring SMITH and had the opportunity to ask questions and assume patient care. Patient resting comfortably at transfer of care. All current needs met
--- NOTE | 2020-02-14 06:38 | NUR ---
Problems reprioritized. Patient report given, questions answered & plan of care reviewed with Violet SMITH and Vernell SMITH.
[2020-02-14 06:59] LABS: PLATELET ESTIMATE DECREASED
[2020-02-14 07:01] LABS: HYPOCHROMASIA 1+; POLYCHROMASIA 1+; SPHEROCYTES 1+
[2020-02-14 07:02] LABS: SCHISTOCYTES 1+; TEAR DROP CELLS 1+
[2020-02-14] MEDS: K and/or MAG REPLACEMENT MC SCH ×2 (08:00→20:00)
[2020-02-14] MEDS: lactobacillus rhamnosus 10,000 MMU CELLS/CAPSULE PO SCH ×2 (09:11→20:41)
[2020-02-14] MEDS: furosemide 20MG tablet PO SCH ×2 (09:11→20:41)
[2020-02-14] MEDS: pantoprazole 40mg Tablet.DR PO SCH (09:11)
[2020-02-14] MEDS: spironolactone 50 MG tablet PO SCH (09:11)
[2020-02-14] MEDS: CefTRIAXone/D5W-Rocephin 1gm 50 ML IV SCH (09:12)
--- NOTE | 2020-02-14 11:53 | NUR ---
Paged Dr. Gonzalez: PAGER ID: [phone] MESSAGE: RE: [address] [id number]. 900 ml off left side for thora. Patient states she would prefer to stay the evening and discharge tomorrow morning. States she lives far away in the [facility]. Monitoring patient now. Violet [phone]
--- NOTE | 2020-02-14 18:07 | NUR ---
Orientee documentation: I have reviewed and agree with all interventions, assessments performed and documented by SARAH Matt. Orientee Medication Administration: For this medication-pass time frame, all medication were reviewed, dispensed, administered and documented per hospital policy by SARAH Matt.
--- NOTE | 2020-02-14 18:18 | NUR ---
Problems reprioritized. Patient report given, questions answered & plan of care reviewed with Shahla SMITH. Patient stable at transfer of care.
--- NOTE | 2020-02-14 18:18 | NUR ---
Problems reprioritized. Patient report given, questions answered & plan of care reviewed with Shahla SMITH. patient stable at transfer of care. All current needs met.
[2020-02-15] MEDS: oxyCODONE IR 5mg (immed. release) tablet PO PRN ×2 (01:37→07:36)
[2020-02-15 02:00] VITALS: BP 96/44
[2020-02-15 05:51] LABS: BASOPHILS % (AUTO) 0.6 % (0-1); EOSINOPHILS # (AUTO) 0.2 X10'3 (0-0.9); EOSINOPHILS % (AUTO) 3.7 % (0-6); HEMATOCRIT 28.8 % (35.0-45.0); LYMPHOCYTES # (AUTO) 0.6 X10'3 (1.1-4.8); LYMPHOCYTES % (AUTO) 11.9 % (21-51); MEAN CORPUSCULAR HEMOGLOBIN 35.8 PG (27.0-31.0); MEAN CORPUSCULAR HGB CONC 34.8 g/dL (33.0-36.5); MEAN PLATELET VOLUME 9.4 FL (7.4-10.4); MONOCYTES # (AUTO) 0.8 X10'3 (0-0.9); MONOCYTES % (AUTO) 15.7 % (2-12); NEUTROPHILS # (AUTO) 3.6 X10'3 (1.8-7.7); NEUTROPHILS % (AUTO) 68.1 % (42-75); WHITE BLOOD COUNT 5.3 X10'3 (4.5-11.0)
[2020-02-15 05:57] LABS: PLATELET COUNT 49 X10'3 (140-440)
[2020-02-15 06:00] VITALS: BP 123/71
[2020-02-15 06:04] LABS: ALANINE AMINOTRANSFERASE 33 U/L (12-78); ALBUMIN 1.8 G/DL (3.4-5.0); ALKALINE PHOSPHATASE 100 IU/L (46-116); ANION GAP 6 (8-16); ASPARTATE AMINO TRANSFERASE 39 U/L (10-37); BILIRUBIN,TOTAL 5.1 MG/DL (0.1-1.0); BLOOD UREA NITROGEN 30 MG/DL (7-18); BUN/CREATININE RATIO 22.1 (6.6-38.0); CALCIUM 8.9 MG/DL (8.5-10.1); CHLORIDE 100 MMOL/L (99-107); CREATININE 1.36 MG/DL (0.40-0.90); GLUCOSE 104 MG/DL (70-104); MAGNESIUM 1.9 MG/DL (1.5-2.4); POTASSIUM 4.5 MMOL/L (3.5-5.1); SODIUM 131 MMOL/L (135-145); TOTAL CARBON DIOXIDE 24.6 MMOL/L (24-32); eGFR 41 ML/MIN
[2020-02-15 06:05] LABS: ALBUMIN/GLOBULIN RATIO 0.5 (1.1-1.5); TOTAL PROTEIN 5.5 G/DL (6.4-8.2)
--- NOTE | 2020-02-15 06:21 | NUR ---
Problems reprioritized. Patient report given, questions answered & plan of care reviewed with Natali SMITH.
--- NOTE | 2020-02-15 06:22 | NUR ---
Patient in room PCU 3015. I have received report from Shahla SMITH and had the opportunity to ask questions and assume patient care.
[2020-02-15 07:06] LABS: ANISOCYTOSIS 3+; PLATELET ESTIMATE DECREASED; POIKILOCYTOSIS 1+; TARGET CELLS FEW; TEAR DROP CELLS FEW; TOTAL CELLS COUNTED 100
[2020-02-15 07:07] LABS: ELLIPTOCYTES FEW; TOXIC GRANULATION 1+; TOXIC VACUOLATION FEW
[2020-02-15 07:08] LABS: ACANTHOCYTES FEW; SPHEROCYTES 1+
[2020-02-15 07:10] LABS: SMUDGE CELLS 1+
[2020-02-15 07:12] LABS: HYPOCHROMASIA 1+; POLYCHROMASIA 1+
[2020-02-15 07:13] LABS: SCHISTOCYTES 1+
[2020-02-15] MEDS: lactobacillus rhamnosus 10,000 MMU CELLS/CAPSULE PO SCH (07:33)
[2020-02-15] MEDS: pantoprazole 40mg Tablet.DR PO SCH (07:33)
[2020-02-15] MEDS: spironolactone 50 MG tablet PO SCH (07:33)
[2020-02-15] MEDS: furosemide 20MG tablet PO SCH (07:33)
[2020-02-15] MEDS: K and/or MAG REPLACEMENT MC SCH (07:40)
[2020-02-15 11:00] VITALS: BP 103/54
--- NOTE | 2020-02-15 11:19 | NUR ---
PAGER ID: [phone] MESSAGE: [id number] Odette Romeronie: CT results are in, shows multiple things including: moderate amount of free intraperitoneal fluid present and large left pleural fluid collection present. thanks Natali
--- NOTE | 2020-02-15 13:12 | NUR ---
PAGER ID: [phone] MESSAGE: [id number]: DAVID pt has called her for ride home, still no orders for discharge. thanks faraz
[2020-02-15] MEDS ORDERED: FERR-106 PO (13:15)
--- NOTE | 2020-02-15 14:00 | NUR ---
Pt is stable for discharge per md orders, discharge instructions reviewed w/ pt and all questions answered, no new medication prescription change to iron to be given daily instead of 3x/day, pt is aware, tele monitor dc'ed and returned, piv dc'ed intact clean dry dressing placed, pt discharges to home @1400 w/ in private vehicle, wheeled down to [facility] w/ hospital staff, home medication and all belongings w/ pt at time of discharge.
== END 2020-02-15 14:10 | disposition home or self-care (01) | DRG 280 ==
LOC: ER 12:35 → ED HOLD 17:54 → PCU 3S 19:39
PROVIDERS: ADMIT Family Medicine; ATTEND Family Medicine
PROC: 0W9G3ZZ Drainage of Peritoneal Cavity, Percutaneous Approach (ICD-10-PCS; principal; 2020-02-12)
PROC: 0W9B3ZZ Drainage of Left Pleural Cavity, Percutaneous Approach (ICD-10-PCS; 2020-02-14)
DX: K70.31 Alcoholic cirrhosis of liver with ascites (principal); D68.9 Coagulation defect, unspecified; D69.59 Other secondary thrombocytopenia; D72.829 Elevated white blood cell count, unspecified; I13.0 Hypertensive heart and chronic kidney disease with heart failure and stage 1 through stage 4 chronic kidney disease, or unspecified chronic kidney disease; E87.1 Hypo-osmolality and hyponatremia; I50.9 Heart failure, unspecified; N17.9 Acute kidney failure, unspecified; K72.90 Hepatic failure, unspecified without coma; Z80.3 Family history of malignant neoplasm of breast; Z82.49 Family history of ischemic heart disease and other diseases of the circulatory system; Z87.442 Personal history of urinary calculi; I25.2 Old myocardial infarction; Z90.710 Acquired absence of both cervix and uterus; Z80.51 Family history of malignant neoplasm of kidney
CPT/HCPCS: 32555; 36415; 49083; 71045; 71250; 80053; 81001; 82140; 83605; 83735; 83880; 84145; 84484; 85025; 85610; 87040; 87077; 87081; 87088; 87186; 93005; 93306; 96374; 96375; 96376; 97116; 97161; 97530; 99285; G0378; J0696; J1170; J1940; J2060; J2405; J3010; P9047

== ENCOUNTER 2020-02-27 02:33 | Inpatient (IN) | payer MEDICAID ==
[~2020-02-27] VITALS: Ht 157.5 cm; Wt 110.0 kg
[2020-02-27] VITALS (7 sets, daily range): BP systolic 94–143; BP diastolic 41–84
[~2020-02-27 02:33] MED LIST changes: -AZI25OT PO; -DIPH25CA83 PO; +FERR-106 PO; -HYDR-4353 PO; +LACT10SO PO; +MELA10TA2 PO; -PHYT100T PO; -PROP10TA10 PO; +SUCR1TAB PO
[2020-02-27] MEDS ORDERED: HYDROcodone/acetaminophen 5mg/325mg tablet PO ONE (03:05)
[2020-02-27 03:43] LABS: BASOPHILS % (AUTO) 0.6 % (0-1); EOSINOPHILS # (AUTO) 0.2 X10'3 (0-0.9); EOSINOPHILS % (AUTO) 3.7 % (0-6); HEMATOCRIT 26.1 % (35.0-45.0); LYMPHOCYTES # (AUTO) 0.7 X10'3 (1.1-4.8); LYMPHOCYTES % (AUTO) 12.5 % (21-51); MEAN CORPUSCULAR HEMOGLOBIN 36.9 PG (27.0-31.0); MEAN CORPUSCULAR HGB CONC 34.4 g/dL (33.0-36.5); MEAN CORPUSCULAR VOLUME 107.3 FL (78-98); MEAN PLATELET VOLUME 8.9 FL (7.4-10.4); MONOCYTES # (AUTO) 0.9 X10'3 (0-0.9); NEUTROPHILS # (AUTO) 3.9 X10'3 (1.8-7.7); NEUTROPHILS % (AUTO) 68.2 % (42-75); PLATELET COUNT 72 X10'3 (140-440); RED BLOOD COUNT 2.43 X10'6 (4.20-5.60); RED CELL DISTRIBUTION WIDTH 17.5 % (11.5-14.5); WHITE BLOOD COUNT 5.8 X10'3 (4.5-11.0)
[2020-02-27 04:06] LABS: ALANINE AMINOTRANSFERASE 40 U/L (12-78); ALBUMIN 1.8 G/DL (3.4-5.0); ALKALINE PHOSPHATASE 98 IU/L (46-116); ANION GAP 9 (8-16); ASPARTATE AMINO TRANSFERASE 42 U/L (10-37); BILIRUBIN,TOTAL 6.8 MG/DL (0.1-1.0); BLOOD UREA NITROGEN 40 MG/DL (7-18); BUN/CREATININE RATIO 17.6 (6.6-38.0); CALCIUM 8.3 MG/DL (8.5-10.1); CHLORIDE 101 MMOL/L (99-107); CREATININE 2.27 MG/DL (0.40-0.90); GLUCOSE 102 MG/DL (70-104); POTASSIUM 4.6 MMOL/L (3.5-5.1); SODIUM 132 MMOL/L (135-145); TOTAL CARBON DIOXIDE 22.2 MMOL/L (24-32); eGFR 23 ML/MIN
[2020-02-27 04:21] LABS: ALBUMIN/GLOBULIN RATIO 0.5 (1.1-1.5); TOTAL PROTEIN 5.3 G/DL (6.4-8.2)
[2020-02-27] MEDS ORDERED: magnesium Cl slow-release 64mg tablet PO PRN (04:30)
[2020-02-27] MEDS ORDERED: mag hydrox/Alum hydrox/simeth 30ml oral suspension PO PRN (04:30)
[2020-02-27] MEDS ORDERED: potassium CL 10mEq/100ml bag 100 ML IV PRN ×2 (04:30)
[2020-02-27] MEDS ORDERED: acetaminophen 325mg tablet PO PRN (04:30)
[2020-02-27] MEDS ORDERED: magnesium hydroxide 30ml (MOM) UD suspension PO PRN (04:30)
[2020-02-27] MEDS ORDERED: magnesium 2GM in 50ml NS 50 ML IV PRN (04:30)
[2020-02-27] MEDS ORDERED: ondansetron/PF 4mg/2ml inj IV PRN (04:30)
[2020-02-27] MEDS ORDERED: metoclopramide 5 mg/ml inj IV PRN (04:30)
[2020-02-27] MEDS ORDERED: HYDROmorphone inj. 0.5 MG/0.5 ML DISP.SYRIN IV PRN (04:30)
[2020-02-27] MEDS ORDERED: magnesium 4gm in 100ml NS 100 ML IV PRN (04:30)
[2020-02-27] MEDS ORDERED: potassium Cl 20 mEq SR tablet PO PRN ×2 (04:30)
[2020-02-27] MEDS: furosemide 20 MG/2 ML vial IV SCH ×3 (05:30→20:00)
[2020-02-27] MEDS: CefTRIAXone/D5W-Rocephin 1gm 50 ML IV SCH ×2 (05:30→07:54)
[2020-02-27] MEDS: K and/or MAG REPLACEMENT MC SCH ×2 (08:00→20:00)
[2020-02-27] MEDS: sucralfate 1 gm tablet PO SCH ×4 (08:00→22:24)
[2020-02-27] MEDS: pantoprazole 40mg Tablet.DR PO SCH (09:44)
[2020-02-27] MEDS: spironolactone 50 MG tablet PO SCH (09:44)
[2020-02-27] MEDS: lactulose 20gm/30ml cup PO SCH ×2 (09:44→20:00)
[2020-02-27] MEDS: lactobacillus rhamnosus 10,000 MMU CELLS/CAPSULE PO SCH ×2 (09:44→22:24)
[2020-02-27] MEDS: HYDROmorphone 1 mg/ml syringe IV PRN (09:51)
--- NOTE | 2020-02-27 09:54 | NUR ---
IR/Angio crew Danilo ALBARRAN, an RN and a tech at bedside to do paracentesis
[2020-02-27] MEDS ORDERED: albumin (human) 25% 100 ML IV solution IV ONE (10:45)
--- NOTE | 2020-02-27 11:06 | NUR ---
PAGER ID: [phone] MESSAGE: Surgical Flr Alon SMITH ext [phone]. RE: [address]. S/P paracentesis 8250ml out. Angio/IR asking if you want culture of the fluid taken
--- NOTE | 2020-02-27 18:40 | NUR ---
Problems reprioritized. Patient report given, questions answered & plan of care reviewed with Lillie SMITH.
--- NOTE | 2020-02-27 18:42 | NUR ---
Patient in room NICK 345. I have received report from BEENA SMITH and had the opportunity to ask questions and assume patient care.
[2020-02-27] MEDS ORDERED: temazepam 15mg capsule PO PRN (21:00)
[2020-02-27] MEDS: Melatonin 3mg tablet PO SCH (22:24)
[2020-02-28] VITALS: BP 104/61
[2020-02-28 04:59] LABS: BASOPHILS % (AUTO) 1.4 % (0-1); EOSINOPHILS # (AUTO) 0.2 X10'3 (0-0.9); EOSINOPHILS % (AUTO) 6.3 % (0-6); HEMATOCRIT 24.6 % (35.0-45.0); HEMOGLOBIN 8.5 g/dl (12.0-16.0); LYMPHOCYTES # (AUTO) 0.4 X10'3 (1.1-4.8); LYMPHOCYTES % (AUTO) 16.7 % (21-51); MEAN CORPUSCULAR HEMOGLOBIN 37.4 PG (27.0-31.0); MEAN CORPUSCULAR HGB CONC 34.7 g/dL (33.0-36.5); MEAN CORPUSCULAR VOLUME 107.9 FL (78-98); MEAN PLATELET VOLUME 8.8 FL (7.4-10.4); MONOCYTES # (AUTO) 0.4 X10'3 (0-0.9); MONOCYTES % (AUTO) 14.5 % (2-12); NEUTROPHILS # (AUTO) 1.6 X10'3 (1.8-7.7); NEUTROPHILS % (AUTO) 61.1 % (42-75); RED BLOOD COUNT 2.28 X10'6 (4.20-5.60); RED CELL DISTRIBUTION WIDTH 16.8 % (11.5-14.5); WHITE BLOOD COUNT 2.6 X10'3 (4.5-11.0)
[2020-02-28 05:00] LABS: ALANINE AMINOTRANSFERASE 35 U/L (12-78); ALKALINE PHOSPHATASE 77 IU/L (46-116); ANION GAP 5 (8-16); ASPARTATE AMINO TRANSFERASE 45 U/L (10-37); BLOOD UREA NITROGEN 36 MG/DL (7-18); BUN/CREATININE RATIO 18.1 (6.6-38.0); CALCIUM 9.2 MG/DL (8.5-10.1); CHLORIDE 101 MMOL/L (99-107); CREATININE 1.99 MG/DL (0.40-0.90); GLUCOSE 85 MG/DL (70-104); MAGNESIUM 2.3 MG/DL (1.5-2.4); POTASSIUM 4.5 MMOL/L (3.5-5.1); SODIUM 131 MMOL/L (135-145); TOTAL CARBON DIOXIDE 25.4 MMOL/L (24-32); eGFR 27 ML/MIN
[2020-02-28 05:04] LABS: PLATELET COUNT 46 X10'3 (140-440)
--- NOTE | 2020-02-28 05:15 | NUR ---
PAGED DR. LUIS AND WAS INFORMED ABOUT CRITICAL PLATELET 46 AND YESTERDAY WAS 72. NO NEW ORDERS WAS MADE.
[2020-02-28 05:43] LABS: ALBUMIN/GLOBULIN RATIO 0.7 (1.1-1.5); TOTAL PROTEIN 4.9 G/DL (6.4-8.2)
--- NOTE | 2020-02-28 06:40 | NUR ---
Problems reprioritized. Patient report given, questions answered & plan of care reviewed with BEENA SMITH.
[2020-02-28 06:42] LABS: ANISOCYTOSIS 1+; PLATELET ESTIMATE DECREASED; SMUDGE CELLS 1+; TOTAL CELLS COUNTED 100
--- NOTE | 2020-02-28 06:52 | NUR ---
Patient in room NICK 345. I have received report from Lillie SMITH and had the opportunity to ask questions and assume patient care.
[2020-02-28 07:00] VITALS: BP 102/52
[2020-02-28] MEDS: K and/or MAG REPLACEMENT MC SCH ×2 (08:00→20:00)
[2020-02-28] MEDS: lactulose 20gm/30ml cup PO SCH ×2 (08:45→16:12)
[2020-02-28] MEDS: spironolactone 50 MG tablet PO SCH (08:45)
[2020-02-28] MEDS: lactobacillus rhamnosus 10,000 MMU CELLS/CAPSULE PO SCH ×2 (08:45→19:36)
[2020-02-28] MEDS: sucralfate 1 gm tablet PO SCH ×4 (08:45→21:25)
[2020-02-28] MEDS: furosemide 20 MG/2 ML vial IV SCH ×2 (08:46→19:32)
[2020-02-28] MEDS: CefTRIAXone/D5W-Rocephin 1gm 50 ML IV SCH (08:46)
[2020-02-28] MEDS: pantoprazole 40mg Tablet.DR PO SCH (08:48)
[2020-02-28 08:51] VITALS: BP 108/59
--- NOTE | 2020-02-28 10:45 | NUR ---
PAGER ID: [phone] MESSAGE: Surgical Fljules Chi RN ext [phone]. RE: [address]. Patient requesting for solid food so she can have BM. She is getting Lactulose BID without BM yet
[2020-02-28 11:26] VITALS: BP 105/66
[2020-02-28] MEDS: HYDROmorphone 1 mg/ml syringe IV PRN ×2 (11:48→19:24)
--- NOTE | 2020-02-28 18:38 | NUR ---
Problems reprioritized. Patient report given, questions answered & plan of care reviewed with Lillie SMITH.
--- NOTE | 2020-02-28 18:40 | NUR ---
Patient in room NICK 345. I have received report from EBENA SMITH and had the opportunity to ask questions and assume patient care.
[2020-02-28 20:00] VITALS: BP 99/60
[2020-02-28] MEDS: Melatonin 3mg tablet PO SCH (21:25)
[2020-02-29] VITALS: BP 111/65
[2020-02-29 05:05] LABS: BASOPHILS % (AUTO) 0.8 % (0-1); EOSINOPHILS # (AUTO) 0.2 X10'3 (0-0.9); EOSINOPHILS % (AUTO) 4.5 % (0-6); HEMATOCRIT 25.4 % (35.0-45.0); HEMOGLOBIN 8.8 g/dl (12.0-16.0); LYMPHOCYTES # (AUTO) 0.4 X10'3 (1.1-4.8); LYMPHOCYTES % (AUTO) 11.1 % (21-51); MEAN CORPUSCULAR HEMOGLOBIN 37.3 PG (27.0-31.0); MEAN CORPUSCULAR HGB CONC 34.5 g/dL (33.0-36.5); MEAN CORPUSCULAR VOLUME 108.2 FL (78-98); MEAN PLATELET VOLUME 9.1 FL (7.4-10.4); MONOCYTES # (AUTO) 0.5 X10'3 (0-0.9); MONOCYTES % (AUTO) 13.5 % (2-12); NEUTROPHILS # (AUTO) 2.8 X10'3 (1.8-7.7); NEUTROPHILS % (AUTO) 70.1 % (42-75); PLATELET COUNT 52 X10'3 (140-440); RED BLOOD COUNT 2.35 X10'6 (4.20-5.60)
[2020-02-29 05:27] LABS: ALANINE AMINOTRANSFERASE 47 U/L (12-78); ALBUMIN 2.1 G/DL (3.4-5.0); ALKALINE PHOSPHATASE 101 IU/L (46-116); ANION GAP 5 (8-16); ASPARTATE AMINO TRANSFERASE 59 U/L (10-37); BILIRUBIN,TOTAL 6.4 MG/DL (0.1-1.0); BLOOD UREA NITROGEN 27 MG/DL (7-18); BUN/CREATININE RATIO 16.4 (6.6-38.0); CALCIUM 8.7 MG/DL (8.5-10.1); CHLORIDE 100 MMOL/L (99-107); CREATININE 1.65 MG/DL (0.40-0.90); GLUCOSE 126 MG/DL (70-104); POTASSIUM 4.3 MMOL/L (3.5-5.1); SODIUM 131 MMOL/L (135-145); TOTAL CARBON DIOXIDE 25.6 MMOL/L (24-32); eGFR 33 ML/MIN
[2020-02-29 05:28] LABS: ALBUMIN/GLOBULIN RATIO 0.7 (1.1-1.5); TOTAL PROTEIN 5.3 G/DL (6.4-8.2)
--- NOTE | 2020-02-29 06:30 | NUR ---
Problems reprioritized. Patient report given, questions answered & plan of care reviewed with AMBAR SMITH.
--- NOTE | 2020-02-29 06:43 | NUR ---
Patient in room NICK 345. I have received report from Diana Ortiz RN and had the opportunity to ask questions and assume patient care.
[2020-02-29] MEDS: pantoprazole 40mg Tablet.DR PO SCH (07:34)
[2020-02-29] MEDS: lactulose 20gm/30ml cup PO SCH ×2 (07:34→16:00)
[2020-02-29] MEDS: CefTRIAXone/D5W-Rocephin 1gm 50 ML IV SCH (07:34)
[2020-02-29] MEDS: lactobacillus rhamnosus 10,000 MMU CELLS/CAPSULE PO SCH (07:35)
[2020-02-29] MEDS: sucralfate 1 gm tablet PO SCH ×3 (07:37→17:00)
[2020-02-29 08:00] VITALS: BP 101/48
[2020-02-29] MEDS: K and/or MAG REPLACEMENT MC SCH (08:00)
[2020-02-29] MEDS: spironolactone 50 MG tablet PO SCH (08:00)
[2020-02-29] MEDS: furosemide 20 MG/2 ML vial IV SCH (08:00)
[2020-02-29] MEDS: HYDROmorphone 1 mg/ml syringe IV PRN (08:58)
[2020-02-29 11:41] VITALS: BP 100/54
[2020-02-29] MEDS ORDERED: FURO-149 PO (13:00)
--- NOTE | 2020-02-29 17:50 | NUR ---
Pt Dc to home with . pt is A & O x4, no S&S of ALOC, in no apparent distress. 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 Pt verbalizes understanding of the importance of following up with PCP and scheduling para & thora as an outpatient. Pt packed all belongings and was wheeled out to the front where picked her up. IV cath removed Intact.
== END 2020-02-29 17:52 | disposition home or self-care (01) | DRG 280 ==
LOC: ER 02:34 → ED HOLD 04:28 → SUR 3N 07:02
PROVIDERS: ADMIT Family Medicine; ATTEND Family Medicine
PROC: 0W9G3ZZ Drainage of Peritoneal Cavity, Percutaneous Approach (ICD-10-PCS; principal; 2020-02-27)
DX: K70.40 Alcoholic hepatic failure without coma (principal); F10.20 Alcohol dependence, uncomplicated; D64.9 Anemia, unspecified; D69.6 Thrombocytopenia, unspecified; E87.1 Hypo-osmolality and hyponatremia; E87.5 Hyperkalemia; G89.29 Other chronic pain; I13.0 Hypertensive heart and chronic kidney disease with heart failure and stage 1 through stage 4 chronic kidney disease, or unspecified chronic kidney disease; I50.9 Heart failure, unspecified; K74.60 Unspecified cirrhosis of liver; N17.9 Acute kidney failure, unspecified; M54.5 Low back pain; K21.9 Gastro-esophageal reflux disease without esophagitis; G47.33 Obstructive sleep apnea (adult) (pediatric); E86.0 Dehydration; N18.9 Chronic kidney disease, unspecified; Z80.3 Family history of malignant neoplasm of breast; Z82.49 Family history of ischemic heart disease and other diseases of the circulatory system; Z85.038 Personal history of other malignant neoplasm of large intestine; Z85.51 Personal history of malignant neoplasm of bladder; Z85.528 Personal history of other malignant neoplasm of kidney; Z87.442 Personal history of urinary calculi; Z90.710 Acquired absence of both cervix and uterus
CPT/HCPCS: 36415; 49083; 71250; 80053; 82140; 83735; 85007; 85025; 87081; 97161; 97530; 99285; G0378; J0696; J1170; J1940; P9047

== ENCOUNTER 2020-03-18 18:31 | Inpatient (IN) | payer MEDICAID ==
[~2020-03-18] VITALS: Ht 157.5 cm; Wt 118.0 kg
--- NOTE | 2020-03-18 08:45 | NUR ---
Received report from Elmira SMITH via phone from the ER regarding patient transferring to unit. I had the opportunity to ask questions. Addendum: 03/19/20 at 0108 by Anupama Schuler RN Time of call was 2044
[2020-03-18] MEDS ORDERED: sodium polystyrene sulfonate 15gm/60ml oral suspension PO ONE (18:50)
[2020-03-18] MEDS ORDERED: fentaNYL/PF 50MCG/1 ML 2ML syringe IV ONE (19:05)
[2020-03-18 19:32] LABS: PARTIAL THROMBOPLASTIN TIME 36 SECONDS (22-32)
[2020-03-18 19:34] LABS: BASOPHILS % (AUTO) 0.3 % (0-1); EOSINOPHILS # (AUTO) 0.1 X10'3 (0-0.9); EOSINOPHILS % (AUTO) 0.8 % (0-6); HEMATOCRIT 26.8 % (35.0-45.0); HEMOGLOBIN 9.3 g/dl (12.0-16.0); LYMPHOCYTES # (AUTO) 0.4 X10'3 (1.1-4.8); LYMPHOCYTES % (AUTO) 5.3 % (21-51); MEAN CORPUSCULAR HEMOGLOBIN 37.8 PG (27.0-31.0); MEAN CORPUSCULAR HGB CONC 34.6 g/dL (33.0-36.5); MEAN CORPUSCULAR VOLUME 109.2 FL (78-98); MEAN PLATELET VOLUME 8.9 FL (7.4-10.4); MONOCYTES # (AUTO) 0.6 X10'3 (0-0.9); MONOCYTES % (AUTO) 8.4 % (2-12); NEUTROPHILS # (AUTO) 6.1 X10'3 (1.8-7.7); NEUTROPHILS % (AUTO) 85.2 % (42-75); PLATELET COUNT 89 X10'3 (140-440); RED BLOOD COUNT 2.46 X10'6 (4.20-5.60); WHITE BLOOD COUNT 7.2 X10'3 (4.5-11.0)
[2020-03-18 19:35] LABS: ALANINE AMINOTRANSFERASE 57 U/L (12-78); ALBUMIN 2.1 G/DL (3.4-5.0); ALKALINE PHOSPHATASE 107 IU/L (46-116); ANION GAP 8 (8-16); ASPARTATE AMINO TRANSFERASE 65 U/L (10-37); BILIRUBIN,TOTAL 5.3 MG/DL (0.1-1.0); BLOOD UREA NITROGEN 83 MG/DL (7-18); BUN/CREATININE RATIO 19.2 (6.6-38.0); CHLORIDE 96 MMOL/L (99-107); CREATININE 4.32 MG/DL (0.40-0.90); ETHANOL < 0.010 GM/DL (0.0-0.010); GLUCOSE 100 MG/DL (70-104); LIPASE 819 U/L (73-393); MAGNESIUM 2.6 MG/DL (1.5-2.4); SODIUM 123 MMOL/L (135-145); TOTAL CARBON DIOXIDE 19.4 MMOL/L (24-32); eGFR 11 ML/MIN
[2020-03-18 19:37] LABS: ALBUMIN/GLOBULIN RATIO 0.5 (1.1-1.5); PHOSPHORUS 7.3 MG/DL (2.3-4.5); TOTAL PROTEIN 6.1 G/DL (6.4-8.2)
[2020-03-18 19:39] LABS: POTASSIUM 6.3 MMOL/L (3.5-5.1)
[2020-03-18] MEDS ORDERED: insulin regular, human U-100 3ml vial - multi-dose IV ONE (19:40)
[2020-03-18] MEDS ORDERED: calcium gluconate inj. 1 GM in normal saline 100ml IV soln 100 ML IV ONE (19:40)
[2020-03-18] MEDS ORDERED: dextrose 50%-water 50ml dispensing syringe IV ONE (19:40)
[2020-03-18] MEDS ORDERED: CALCIUM GLUC 1gm/50ml NACL,iso 50 ML IV ONE (19:45)
[2020-03-18] MEDS ORDERED: magnesium 4gm in 100ml NS 100 ML IV PRN (19:55)
[2020-03-18] MEDS ORDERED: ondansetron/PF 4mg/2ml inj IV PRN (19:55)
[2020-03-18] MEDS ORDERED: potassium Cl 20 mEq SR tablet PO PRN ×2 (19:55)
[2020-03-18] MEDS ORDERED: potassium CL 10mEq/100ml bag 100 ML IV PRN ×2 (19:55)
[2020-03-18] MEDS ORDERED: mag hydrox/Alum hydrox/simeth 30ml oral suspension PO PRN (19:55)
[2020-03-18] MEDS ORDERED: acetaminophen 325mg tablet PO PRN (19:55)
[2020-03-18] MEDS ORDERED: magnesium 2GM in 50ml NS 50 ML IV PRN (19:55)
[2020-03-18] MEDS ORDERED: magnesium hydroxide 30ml (MOM) UD suspension PO PRN (19:55)
[2020-03-18] MEDS ORDERED: magnesium Cl slow-release 64mg tablet PO PRN (19:55)
[2020-03-18] MEDS: K and/or MAG REPLACEMENT MC SCH (19:58)
[2020-03-18] MEDS: lactulose 20gm/30ml cup PO SCH (20:00)
[2020-03-18] MEDS ORDERED: OXYGEN NASALCANN (20:03)
--- NOTE | 2020-03-18 21:10 | NUR ---
Patient has arrived on unit. Stable condition, alert and orientated x 4. Two RN skin check performed, small wound from previous paracentesis on right abdomen. MRSA sample collected and vital signs taken HR 42, Temp 98, resp 19, o2 99% RA, Bp 111/49. Patient is comfortable in room with call light.
[2020-03-18 22:00] VITALS: BP 107/51
[2020-03-18] MEDS: sucralfate 1 gm tablet PO SCH (22:28)
[2020-03-18] MEDS: HYDROmorphone inj. 0.5 MG/0.5 ML DISP.SYRIN IV PRN (22:58)
[2020-03-19 02:00] VITALS: BP 111/49
[2020-03-19] MEDS: temazepam 15mg capsule PO PRN (03:51)
[2020-03-19 05:41] LABS: ALANINE AMINOTRANSFERASE 55 U/L (12-78); ALBUMIN 1.9 G/DL (3.4-5.0); ALKALINE PHOSPHATASE 88 IU/L (46-116); ANION GAP 12 (8-16); ASPARTATE AMINO TRANSFERASE 65 U/L (10-37); BILIRUBIN,TOTAL 5.4 MG/DL (0.1-1.0); BLOOD UREA NITROGEN 82 MG/DL (7-18); BUN/CREATININE RATIO 20.2 (6.6-38.0); CALCIUM 8.7 MG/DL (8.5-10.1); CHLORIDE 96 MMOL/L (99-107); CREATININE 4.06 MG/DL (0.40-0.90); GLUCOSE 93 MG/DL (70-104); MAGNESIUM 2.4 MG/DL (1.5-2.4); POTASSIUM 5.3 MMOL/L (3.5-5.1); SODIUM 124 MMOL/L (135-145); TOTAL CARBON DIOXIDE 16.2 MMOL/L (24-32); eGFR 12 ML/MIN
[2020-03-19 05:42] LABS: ALBUMIN/GLOBULIN RATIO 0.5 (1.1-1.5); TOTAL PROTEIN 5.5 G/DL (6.4-8.2)
[2020-03-19 06:11] LABS: BASOPHILS % (AUTO) 0.3 % (0-1); EOSINOPHILS # (AUTO) 0.1 X10'3 (0-0.9); EOSINOPHILS % (AUTO) 2.3 % (0-6); HEMATOCRIT 26.2 % (35.0-45.0); HEMOGLOBIN 9.2 g/dl (12.0-16.0); LYMPHOCYTES # (AUTO) 0.7 X10'3 (1.1-4.8); LYMPHOCYTES % (AUTO) 10.3 % (21-51); MEAN CORPUSCULAR VOLUME 108.6 FL (78-98); MEAN PLATELET VOLUME 9.2 FL (7.4-10.4); MONOCYTES # (AUTO) 0.7 X10'3 (0-0.9); MONOCYTES % (AUTO) 11.5 % (2-12); NEUTROPHILS # (AUTO) 4.8 X10'3 (1.8-7.7); NEUTROPHILS % (AUTO) 75.6 % (42-75); PLATELET COUNT 78 X10'3 (140-440); RED BLOOD COUNT 2.41 X10'6 (4.20-5.60); RED CELL DISTRIBUTION WIDTH 13.7 % (11.5-14.5); WHITE BLOOD COUNT 6.4 X10'3 (4.5-11.0)
--- NOTE | 2020-03-19 06:25 | NUR ---
Problems reprioritized. Patient report given, questions answered & plan of care reviewed with Violet SMITH.
--- NOTE | 2020-03-19 06:27 | NUR ---
Patient in room PCU 3015. I have received report from Helen SMITH and had the opportunity to ask questions and assume patient care. Patient asleep in bed and resting. In no acute distress. All immediate needs met.
[2020-03-19 07:00] VITALS: BP 100/48
[2020-03-19] MEDS: K and/or MAG REPLACEMENT MC SCH ×2 (08:00→20:00)
[2020-03-19] MEDS: spironolactone 50 MG tablet PO SCH (08:15)
[2020-03-19] MEDS: lactobacillus rhamnosus 10,000 MMU CELLS/CAPSULE PO SCH ×2 (08:15→20:55)
[2020-03-19] MEDS: lactulose 20gm/30ml cup PO SCH ×3 (08:15→21:00)
[2020-03-19] MEDS: pantoprazole 40 MG vial IV SCH (08:16)
[2020-03-19] MEDS: furosemide 40mg/4ml inj IV SCH (08:16)
[2020-03-19] MEDS: sucralfate 1 gm tablet PO SCH ×4 (08:16→20:55)
[2020-03-19] MEDS: HYDROmorphone inj. 0.5 MG/0.5 ML DISP.SYRIN IV PRN ×2 (08:39→23:42)
[2020-03-19 09:15] LABS: UA COLLECTION TYPE NON-SPECIFIED
[2020-03-19 09:16] LABS: CLARITY,URINE BLOODY (Clear); COLOR,URINE RED (Yellow)
[2020-03-19 09:25] LABS: URINE AMPHETAMINE SCREEN NEGATIVE (Neg); URINE BARBITUATE SCREEN NEGATIVE (Neg); URINE BENZODIAZEPINES SCREEN NEGATIVE (Neg); URINE CANNABINOID SCREEN NEGATIVE (Neg); URINE COCAINE SCREEN NEGATIVE (Neg); URINE METHADONE SCREEN NEGATIVE (Neg); URINE OPIATE SCREEN POSITIVE (Neg); URINE PHENCYCLIDINE SCREEN NEGATIVE (Neg)
[2020-03-19 09:27] LABS: SQUAMOUS EPITHELIAL CELL,UR MODERATE /LPF (FEW)
[2020-03-19 09:28] LABS: RBC,URINE TNTC /HPF (0-2)
[2020-03-19 09:29] LABS: WBC,URINE 50-100 /HPF (0-4)
[2020-03-19 09:30] LABS: BACTERIA,URINE 1+ /HPF (Neg)
[2020-03-19] MEDS ORDERED: sodium polystyrene sulfonate 15gm/60ml oral suspension PO ONE (10:15)
[2020-03-19] MEDS ORDERED: lactulose 20gm/30ml cup PO SCH (10:15)
[2020-03-19] MEDS ORDERED: ENAL-79 PO (10:25)
[2020-03-19] MEDS ORDERED: FERR-39 PO (10:27)
[2020-03-19 11:00] VITALS: BP 114/63
[2020-03-19 12:18] VITALS: BP 119/62
[2020-03-19 12:20] VITALS: BP 115/54
[2020-03-19] MEDS: sodium bicarbonate (8.4%) inj. 150 MEQ in dextrose 5%-water 1,000 ML IV SCH ×2 (14:43→20:54)
[2020-03-19] MEDS: CefTRIAXone/D5W-Rocephin 1gm 50 ML IV SCH (14:59)
[2020-03-19 15:00] VITALS: BP 115/67
--- NOTE | 2020-03-19 18:17 | NUR ---
Problems reprioritized. Patient report given, questions answered & plan of care reviewed with Anupama SMITH. Patient stable at transfer of care.
--- NOTE | 2020-03-19 18:22 | NUR ---
Orientee Student documentation: I have reviewed and agree with all interventions, assessments performed and documented by SARAH Malcolm. Orientee Medication Administration: For this medication-pass time frame, all medication were reviewed, dispensed, administered and documented per hospital policy by SARAH Malcolm.
--- NOTE | 2020-03-19 18:26 | NUR ---
Patient in room PCU 3015. I have received report from Violet SMITH and had the opportunity to ask questions and assume patient care.
[2020-03-20] MEDS: temazepam 15mg capsule PO PRN (01:37)
[2020-03-20 05:51] LABS: BASOPHILS % (AUTO) 0.4 % (0-1); EOSINOPHILS # (AUTO) 0.2 X10'3 (0-0.9); EOSINOPHILS % (AUTO) 4.6 % (0-6); HEMOGLOBIN 8.6 g/dl (12.0-16.0); LYMPHOCYTES # (AUTO) 0.5 X10'3 (1.1-4.8); LYMPHOCYTES % (AUTO) 10.7 % (21-51); MEAN CORPUSCULAR HEMOGLOBIN 37.5 PG (27.0-31.0); MEAN CORPUSCULAR HGB CONC 34.3 g/dL (33.0-36.5); MEAN CORPUSCULAR VOLUME 109.1 FL (78-98); MEAN PLATELET VOLUME 8.8 FL (7.4-10.4); MONOCYTES # (AUTO) 0.5 X10'3 (0-0.9); MONOCYTES % (AUTO) 12.2 % (2-12); NEUTROPHILS # (AUTO) 3.3 X10'3 (1.8-7.7); NEUTROPHILS % (AUTO) 72.1 % (42-75); PLATELET COUNT 59 X10'3 (140-440); RED BLOOD COUNT 2.29 X10'6 (4.20-5.60); WHITE BLOOD COUNT 4.5 X10'3 (4.5-11.0)
--- NOTE | 2020-03-20 06:16 | NUR ---
Problems reprioritized. Patient report given, questions answered & plan of care reviewed with Violet SMITH.
[2020-03-20 06:22] LABS: ALANINE AMINOTRANSFERASE 60 U/L (12-78); ALBUMIN 1.7 G/DL (3.4-5.0); ALKALINE PHOSPHATASE 82 IU/L (46-116); ANION GAP 12 (8-16); ASPARTATE AMINO TRANSFERASE 77 U/L (10-37); BILIRUBIN,TOTAL 4.9 MG/DL (0.1-1.0); BLOOD UREA NITROGEN 79 MG/DL (7-18); BUN/CREATININE RATIO 19.4 (6.6-38.0); CALCIUM 8.5 MG/DL (8.5-10.1); CHLORIDE 98 MMOL/L (99-107); CREATININE 4.08 MG/DL (0.40-0.90); GLUCOSE 126 MG/DL (70-104); MAGNESIUM 2.3 MG/DL (1.5-2.4); SODIUM 127 MMOL/L (135-145); eGFR 12 ML/MIN
[2020-03-20 06:24] LABS: ALBUMIN/GLOBULIN RATIO 0.5 (1.1-1.5); PHOSPHORUS 7.1 MG/DL (2.3-4.5); POTASSIUM 4.4 MMOL/L (3.5-5.1); TOTAL PROTEIN 5.4 G/DL (6.4-8.2)
--- NOTE | 2020-03-20 06:39 | NUR ---
Patient in room PCU 3015. I have received report from Anupama SMITH and had the opportunity to ask questions and assume patient care. Patient asleep in bed and resting. In no acute distress. All immediate needs met at this time.
[2020-03-20 07:00] VITALS: BP 103/57
[2020-03-20] MEDS: K and/or MAG REPLACEMENT MC SCH ×2 (08:00→20:00)
[2020-03-20] MEDS: lactulose 20gm/30ml cup PO SCH ×5 (08:31→23:54)
[2020-03-20] MEDS: pantoprazole 40 MG vial IV SCH (08:32)
[2020-03-20] MEDS: furosemide 40mg/4ml inj IV SCH (08:32)
[2020-03-20] MEDS: CefTRIAXone/D5W-Rocephin 1gm 50 ML IV SCH (08:33)
[2020-03-20] MEDS: spironolactone 50 MG tablet PO SCH (08:33)
[2020-03-20] MEDS: lactobacillus rhamnosus 10,000 MMU CELLS/CAPSULE PO SCH ×2 (08:33→20:27)
[2020-03-20] MEDS: sucralfate 1 gm tablet PO SCH ×4 (08:33→20:27)
[2020-03-20] MEDS: HYDROmorphone inj. 0.5 MG/0.5 ML DISP.SYRIN IV PRN ×3 (09:03→22:01)
--- NOTE | 2020-03-20 09:43 | NUR ---
Paged Dr. Coronado: PAGER ID: [phone] MESSAGE: RE: [address] [id number]. Patient has clear liquid diet order. Is it ok to advance patient diet? Violet [phone]
--- NOTE | 2020-03-20 10:36 | NUR ---
New orders from Dr. Coronado: Full liquid diet, lactulose 30 gm Q4H scheduled, lipase now, ammonia level morning lab tomorrow 03/21.
[2020-03-20 11:00] VITALS: BP 101/58
[2020-03-20 11:49] LABS: LIPASE 341 U/L (73-393)
[2020-03-20 15:00] VITALS: BP 128/67
[2020-03-20] MEDS: sodium bicarbonate (8.4%) inj. 150 MEQ in dextrose 5%-water 1,000 ML IV SCH ×2 (16:18→20:29)
[2020-03-20 18:00] VITALS: BP 123/68
--- NOTE | 2020-03-20 18:04 | NUR ---
Problems reprioritized. Patient report given, questions answered & plan of care reviewed with SARAH Altman.
--- NOTE | 2020-03-20 18:26 | NUR ---
Orientee documentation: I have reviewed and agree with all interventions, assessments performed and documented by Gold Lennon Medication Administration: For this medication-pass time frame, all medication were reviewed, dispensed, administered and documented per hospital policy by SARAH Malcolm.
--- NOTE | 2020-03-20 18:33 | NUR ---
Patient in room PCU 3015. I have received report from Violet SMITH and had the opportunity to ask questions and assume patient care.
[2020-03-20 22:00] VITALS: BP 106/55
[2020-03-21] VITALS (8 sets, daily range): BP systolic 93–122; BP diastolic 44–64
[2020-03-21] MEDS: temazepam 15mg capsule PO PRN (01:23)
[2020-03-21] MEDS: lactulose 20gm/30ml cup PO SCH ×3 (04:21→16:47)
[2020-03-21] MEDS: sodium bicarbonate (8.4%) inj. 150 MEQ in dextrose 5%-water 1,000 ML IV SCH (04:21)
--- NOTE | 2020-03-21 06:37 | NUR ---
Problems reprioritized. Patient report given, questions answered & plan of care reviewed with Tyler SMITH.
[2020-03-21 06:39] LABS: ALANINE AMINOTRANSFERASE 85 U/L (12-78); ALBUMIN 1.8 G/DL (3.4-5.0); ALBUMIN/GLOBULIN RATIO 0.5 (1.1-1.5); ALKALINE PHOSPHATASE 93 IU/L (46-116); ANION GAP 9 (8-16); ASPARTATE AMINO TRANSFERASE 104 U/L (10-37); BILIRUBIN,TOTAL 4.4 MG/DL (0.1-1.0); BLOOD UREA NITROGEN 78 MG/DL (7-18); BUN/CREATININE RATIO 19.5 (6.6-38.0); CALCIUM 8.5 MG/DL (8.5-10.1); CHLORIDE 97 MMOL/L (99-107); CREATININE 4.01 MG/DL (0.40-0.90); GLUCOSE 145 MG/DL (70-104); MAGNESIUM 2.3 MG/DL (1.5-2.4); PHOSPHORUS 6.6 MG/DL (2.3-4.5); SODIUM 130 MMOL/L (135-145); TOTAL CARBON DIOXIDE 24.4 MMOL/L (24-32); TOTAL PROTEIN 5.4 G/DL (6.4-8.2); eGFR 12 ML/MIN
[2020-03-21 06:47] LABS: BASOPHILS % (AUTO) 0.5 % (0-1); EOSINOPHILS # (AUTO) 0.2 X10'3 (0-0.9); HEMATOCRIT 24.5 % (35.0-45.0); HEMOGLOBIN 8.6 g/dl (12.0-16.0); LYMPHOCYTES # (AUTO) 0.5 X10'3 (1.1-4.8); LYMPHOCYTES % (AUTO) 8.4 % (21-51); MEAN CORPUSCULAR HEMOGLOBIN 37.8 PG (27.0-31.0); MEAN PLATELET VOLUME 9.5 FL (7.4-10.4); MONOCYTES # (AUTO) 0.7 X10'3 (0-0.9); NEUTROPHILS # (AUTO) 4.2 X10'3 (1.8-7.7); NEUTROPHILS % (AUTO) 75.1 % (42-75); PLATELET COUNT 70 X10'3 (140-440); RED BLOOD COUNT 2.27 X10'6 (4.20-5.60); RED CELL DISTRIBUTION WIDTH 13.8 % (11.5-14.5); WHITE BLOOD COUNT 5.6 X10'3 (4.5-11.0)
[2020-03-21 07:35] LABS: BURR CELLS 2+; PLATELET ESTIMATE DECREASED; SCHISTOCYTES FEW
[2020-03-21] MEDS: K and/or MAG REPLACEMENT MC SCH ×2 (08:00→20:00)
[2020-03-21] MEDS: CefTRIAXone/D5W-Rocephin 1gm 50 ML IV SCH (08:43)
[2020-03-21] MEDS: furosemide 40mg/4ml inj IV SCH ×3 (08:45→20:06)
[2020-03-21] MEDS: pantoprazole 40 MG vial IV SCH (08:45)
[2020-03-21] MEDS: lactobacillus rhamnosus 10,000 MMU CELLS/CAPSULE PO SCH ×2 (08:46→20:06)
[2020-03-21] MEDS: spironolactone 50 MG tablet PO SCH (08:46)
[2020-03-21] MEDS: sucralfate 1 gm tablet PO SCH ×4 (08:46→20:06)
[2020-03-21] MEDS: HYDROmorphone inj. 0.5 MG/0.5 ML DISP.SYRIN IV PRN ×3 (09:11→20:06)
--- NOTE | 2020-03-21 10:06 | NUR ---
Patient in room PCU 3015. I have received report from SARAH Altman. and had the opportunity to ask questions and assume patient care. Patient resting comfortably, no signs of distress. Safety measures in place, bed in low and locked position. Call light and personal items within reach. Will continue to monitor throughout shift.
[2020-03-21] MEDS ORDERED: albumin (human) 25% 100 ML IV solution IV ONE (10:55)
[2020-03-21 12:38] LABS: GLUCOSE,BODY FLUID 146 MG/DL; LDH,BODY FLUID 37 U/L
[2020-03-21 12:51] LABS: ALBUMIN,BODY FLUID < 0.6 G/DL
[2020-03-21 12:52] LABS: TOTAL PROTEIN,BODY FLUID < 2.0 G/DL
[2020-03-21 13:05] LABS: BFAPPEAR CLEAR
[2020-03-21 13:06] LABS: BF MESOTHELIAL CELLS FEW; BF RBC COUNT 448 /CU MM; BF WBC COUNT 60 /CU MM (0-1000); BFCOLOR YELLOW; BFVOLUME 26 ML; LYMPHOCYTES,BODY FLUID 83 %; MONOCYTES,BODY FLUID 9 %; NEUTROPHILS,BODY FLUID 8 %
--- NOTE | 2020-03-21 14:30 | NUR ---
Placed cesar catheter per physicians orders. Discomfort with insertion, overall patient tolerated well. Urine return present. 10ml of saline added to balloon. Catheter secured with stat lock to inner thigh. Initial 50ml of urine output.
--- NOTE | 2020-03-21 18:15 | NUR ---
Problems reprioritized. Patient report given, questions answered & plan of care reviewed with Coty SMITH.
--- NOTE | 2020-03-21 18:32 | NUR ---
Problems reprioritized. Patient report given, questions answered & plan of care reviewed with SARAH Scott.
[2020-03-22] VITALS (7 sets, daily range): BP systolic 103–135; BP diastolic 51–60
[2020-03-22] MEDS: lactulose 20gm/30ml cup PO SCH ×3 (00:20→15:19)
[2020-03-22] MEDS: HYDROmorphone inj. 0.5 MG/0.5 ML DISP.SYRIN IV PRN ×4 (00:22→19:30)
[2020-03-22] MEDS: temazepam 15mg capsule PO PRN (01:16)
[2020-03-22] MEDS: furosemide 40mg/4ml inj IV SCH ×4 (04:13→19:30)
--- NOTE | 2020-03-22 05:00 | NUR ---
Patient's paracentesis wound was excessively draining and dressing got soaked. Patient's bed needed to be changed and a bath towel was soaked. Patient mentioned the MD talking about using an ostomy bag if the wound leaks too much. I called the night intensivest and he agreed to use an ostomy bag for drainage. I saw two puncture wounds so i used two ostomys.
[2020-03-22 06:16] LABS: BASOPHILS % (AUTO) 0.6 % (0-1); EOSINOPHILS # (AUTO) 0.3 X10'3 (0-0.9); EOSINOPHILS % (AUTO) 5.4 % (0-6); HEMATOCRIT 23.6 % (35.0-45.0); HEMOGLOBIN 8.2 g/dl (12.0-16.0); LYMPHOCYTES # (AUTO) 0.5 X10'3 (1.1-4.8); MEAN CORPUSCULAR HEMOGLOBIN 37.1 PG (27.0-31.0); MEAN CORPUSCULAR HGB CONC 34.6 g/dL (33.0-36.5); MEAN CORPUSCULAR VOLUME 107.2 FL (78-98); MEAN PLATELET VOLUME 9.4 FL (7.4-10.4); MONOCYTES # (AUTO) 0.7 X10'3 (0-0.9); MONOCYTES % (AUTO) 13.4 % (2-12); NEUTROPHILS # (AUTO) 3.8 X10'3 (1.8-7.7); NEUTROPHILS % (AUTO) 70.6 % (42-75); PLATELET COUNT 61 X10'3 (140-440); RED CELL DISTRIBUTION WIDTH 13.8 % (11.5-14.5); WHITE BLOOD COUNT 5.4 X10'3 (4.5-11.0)
--- NOTE | 2020-03-22 06:19 | NUR ---
Problems reprioritized. Patient report given, questions answered & plan of care reviewed with SARAH Gao.
--- NOTE | 2020-03-22 06:33 | NUR ---
Patient in room PCU 3015. I have received report from RALPH SMITH and had the opportunity to ask questions and assume patient care.
[2020-03-22 06:36] LABS: ALANINE AMINOTRANSFERASE 71 U/L (12-78); ALBUMIN 1.9 G/DL (3.4-5.0); ALKALINE PHOSPHATASE 95 IU/L (46-116); ANION GAP 9 (8-16); ASPARTATE AMINO TRANSFERASE 78 U/L (10-37); BILIRUBIN,TOTAL 3.6 MG/DL (0.1-1.0); BLOOD UREA NITROGEN 76 MG/DL (7-18); BUN/CREATININE RATIO 21.1 (6.6-38.0); CALCIUM 8.2 MG/DL (8.5-10.1); CHLORIDE 98 MMOL/L (99-107); GLUCOSE 112 MG/DL (70-104); MAGNESIUM 2.2 MG/DL (1.5-2.4); POTASSIUM 4.1 MMOL/L (3.5-5.1); SODIUM 130 MMOL/L (135-145); TOTAL CARBON DIOXIDE 22.6 MMOL/L (24-32); eGFR 13 ML/MIN
[2020-03-22 06:37] LABS: ALBUMIN/GLOBULIN RATIO 0.6 (1.1-1.5); PHOSPHORUS 6.5 MG/DL (2.3-4.5); TOTAL PROTEIN 5.1 G/DL (6.4-8.2)
[2020-03-22] MEDS: K and/or MAG REPLACEMENT MC SCH ×2 (06:49→19:03)
[2020-03-22] MEDS: lactobacillus rhamnosus 10,000 MMU CELLS/CAPSULE PO SCH ×2 (09:13→19:30)
[2020-03-22] MEDS: CefTRIAXone/D5W-Rocephin 1gm 50 ML IV SCH (09:13)
[2020-03-22] MEDS: spironolactone 50 MG tablet PO SCH (09:13)
[2020-03-22] MEDS: pantoprazole 40mg Tablet.DR PO SCH (09:13)
[2020-03-22] MEDS: sucralfate 1 gm tablet PO SCH ×4 (09:13→20:55)
--- NOTE | 2020-03-22 18:22 | NUR ---
Problems reprioritized. Patient report given, questions answered & plan of care reviewed with prudence rn.
--- NOTE | 2020-03-22 18:36 | NUR ---
Patient in room PCU 3015. I have received report from ROBBIE SMITH and had the opportunity to ask questions and assume patient care.
[2020-03-23] MEDS: HYDROmorphone inj. 0.5 MG/0.5 ML DISP.SYRIN IV PRN ×2 (00:05→08:13)
[2020-03-23] MEDS: lactulose 20gm/30ml cup PO SCH (00:05)
[2020-03-23] MEDS: temazepam 15mg capsule PO PRN (01:35)
[2020-03-23] MEDS: furosemide 40mg/4ml inj IV SCH ×2 (01:35→08:12)
[2020-03-23 02:00] VITALS: BP 97/60
[2020-03-23 06:00] VITALS: BP 106/56
[2020-03-23 06:16] LABS: ALANINE AMINOTRANSFERASE 65 U/L (12-78); ALBUMIN 1.9 G/DL (3.4-5.0); ALKALINE PHOSPHATASE 99 IU/L (46-116); ANION GAP 11 (8-16); ASPARTATE AMINO TRANSFERASE 66 U/L (10-37); BILIRUBIN,TOTAL 3.4 MG/DL (0.1-1.0); BLOOD UREA NITROGEN 77 MG/DL (7-18); BUN/CREATININE RATIO 22.4 (6.6-38.0); CALCIUM 8.3 MG/DL (8.5-10.1); CHLORIDE 98 MMOL/L (99-107); CREATININE 3.44 MG/DL (0.40-0.90); GLUCOSE 118 MG/DL (70-104); MAGNESIUM 2.2 MG/DL (1.5-2.4); POTASSIUM 4.2 MMOL/L (3.5-5.1); SODIUM 130 MMOL/L (135-145); TOTAL CARBON DIOXIDE 21.3 MMOL/L (24-32); eGFR 14 ML/MIN
[2020-03-23 06:18] LABS: ALBUMIN/GLOBULIN RATIO 0.6 (1.1-1.5); PHOSPHORUS 6.2 MG/DL (2.3-4.5); TOTAL PROTEIN 5.3 G/DL (6.4-8.2)
[2020-03-23 06:37] LABS: BASOPHILS % (AUTO) 0.6 % (0-1); EOSINOPHILS # (AUTO) 0.3 X10'3 (0-0.9); EOSINOPHILS % (AUTO) 5.2 % (0-6); HEMOGLOBIN 8.3 g/dl (12.0-16.0); LYMPHOCYTES # (AUTO) 0.5 X10'3 (1.1-4.8); LYMPHOCYTES % (AUTO) 8.7 % (21-51); MEAN CORPUSCULAR HEMOGLOBIN 37.4 PG (27.0-31.0); MEAN CORPUSCULAR HGB CONC 34.7 g/dL (33.0-36.5); MEAN PLATELET VOLUME 9.4 FL (7.4-10.4); MONOCYTES # (AUTO) 0.6 X10'3 (0-0.9); MONOCYTES % (AUTO) 10.5 % (2-12); NEUTROPHILS # (AUTO) 4.3 X10'3 (1.8-7.7); PLATELET COUNT 62 X10'3 (140-440); RED BLOOD COUNT 2.22 X10'6 (4.20-5.60); WHITE BLOOD COUNT 5.7 X10'3 (4.5-11.0)
[2020-03-23] MEDS: sucralfate 1 gm tablet PO SCH (08:13)
[2020-03-23] MEDS: lactobacillus rhamnosus 10,000 MMU CELLS/CAPSULE PO SCH (08:13)
[2020-03-23] MEDS: CefTRIAXone/D5W-Rocephin 1gm 50 ML IV SCH (08:14)
[2020-03-23] MEDS: spironolactone 50 MG tablet PO SCH (08:14)
[2020-03-23] MEDS: pantoprazole 40mg Tablet.DR PO SCH (08:14)
[2020-03-23 11:00] VITALS: BP 109/60
[2020-03-23] MEDS ORDERED: CEFD300C3 PO (12:27)
[2020-03-23] MEDS ORDERED: SODI650T29 PO (12:31)
--- NOTE | 2020-03-23 13:00 | NUR ---
IV d/kang and it had no s/s of any complications.
--- NOTE | 2020-03-23 13:00 | NUR ---
Discharge orders given. Pt has remained stable VSS. All belongings accounted for. Discharge instructions given and pt stated understanding. Pt taken via wheelchair to family in private vehicle.
== END 2020-03-23 13:30 | disposition home or self-care (01) | DRG 280 ==
LOC: ER 18:31 → ED HOLD 19:51 → PCU 3S 21:01
PROVIDERS: ADMIT Family Medicine; ATTEND Internal Medicine
PROC: 0W9G3ZZ Drainage of Peritoneal Cavity, Percutaneous Approach (ICD-10-PCS; principal; 2020-03-19)
PROC: 0W9G3ZZ Drainage of Peritoneal Cavity, Percutaneous Approach (ICD-10-PCS; 2020-03-21)
DX: K70.40 Alcoholic hepatic failure without coma (principal); K70.31 Alcoholic cirrhosis of liver with ascites; D53.9 Nutritional anemia, unspecified; E66.01 Morbid (severe) obesity due to excess calories; E87.1 Hypo-osmolality and hyponatremia; E87.2 Acidosis; E87.5 Hyperkalemia; F10.10 Alcohol abuse, uncomplicated; I50.9 Heart failure, unspecified; J96.90 Respiratory failure, unspecified, unspecified whether with hypoxia or hypercapnia; K76.6 Portal hypertension; K76.7 Hepatorenal syndrome; N17.9 Acute kidney failure, unspecified; N18.9 Chronic kidney disease, unspecified; N39.0 Urinary tract infection, site not specified; Z80.0 Family history of malignant neoplasm of digestive organs; Z80.3 Family history of malignant neoplasm of breast; Z80.51 Family history of malignant neoplasm of kidney; Z80.52 Family history of malignant neoplasm of bladder; Z82.49 Family history of ischemic heart disease and other diseases of the circulatory system; Z85.038 Personal history of other malignant neoplasm of large intestine; Z85.51 Personal history of malignant neoplasm of bladder; Z85.528 Personal history of other malignant neoplasm of kidney
CPT/HCPCS: 36415; 49083; 71045; 76775; 76937; 80053; 80305; 80320; 81001; 82042; 82140; 82945; 83615; 83690; 83735; 84100; 84157; 85008; 85025; 85610; 85730; 87070; 87081; 87088; 89051; 93005; 96365; 96375; 97116; 97161; 97530; 99285; C9113; G0378; J0696; J1170; J1815; J1940; J3010; P9047

== ENCOUNTER 2020-03-28 06:05 | Day surgery (SDC) | payer MEDICAID ==
[2020-03-28] VITALS (13 sets, daily range): BP systolic 107–122; BP diastolic 60–80
[~2020-03-28] VITALS: Ht 157.5 cm; Wt 118.3 kg
[~2020-03-28 06:05] MED LIST changes: +CEFD300C3 PO; -FERR-106 PO; +OXYGEN NASALCANN; +SODI650T29 PO
[2020-03-28] MEDS ORDERED: normal saline 1000ml 1,000 ML IV PRN (06:30)
[2020-03-28] MEDS ORDERED: HYDR2TAB28 PO (06:40)
[2020-03-28] MEDS ORDERED: CEFD300C3 PO (06:52)
[2020-03-28] MEDS ORDERED: FURO40TA4 PO (06:53)
[2020-03-28] MEDS ORDERED: LACT1CAP26 PO (06:54)
[2020-03-28] MEDS ORDERED: SODI650T29 PO (06:56)
[2020-03-28] MEDS: albumin 25% 100mL bottle x 1 IV PRN ×2 (10:14→10:46)
== END 2020-03-28 11:30 | disposition home or self-care (01) ==
LOC: SSTAY O 06:05
PROVIDERS: ATTEND Radiology Vascular & Interventional Radiology
DX: K70.31 Alcoholic cirrhosis of liver with ascites (principal); N18.9 Chronic kidney disease, unspecified; I50.9 Heart failure, unspecified; K76.6 Portal hypertension; Z91.040 Latex allergy status; Z79.899 Other long term (current) drug therapy; Z88.8 Allergy status to other drugs, medicaments and biological substances; Z88.5 Allergy status to narcotic agent; Z80.3 Family history of malignant neoplasm of breast; Z80.0 Family history of malignant neoplasm of digestive organs; Z80.52 Family history of malignant neoplasm of bladder; Z82.49 Family history of ischemic heart disease and other diseases of the circulatory system
CPT/HCPCS: 49083; P9047

== ENCOUNTER 2020-04-04 07:15 | Day surgery (SDC) | payer MEDICAID ==
[~2020-04-04] VITALS: Ht 157.5 cm; Wt 110.0 kg
[2020-04-04] VITALS (8 sets, daily range): BP systolic 98–132; BP diastolic 52–77
[~2020-04-04 07:15] MED LIST changes: -FURO-149 PO; +FURO40TA4 PO; +HYDR2TAB28 PO
[2020-04-04] MEDS ORDERED: albumin 25% 100mL bottle x 1 IV PRN (07:45)
[2020-04-04] MEDS ORDERED: FENT1PAT7 (07:55)
[2020-04-04] MEDS: albumin 25% 100mL bottle x 1 IV PRN ×2 (11:10→11:50)
== END 2020-04-04 12:50 | disposition home or self-care (01) ==
LOC: SSTAY O 07:15
PROVIDERS: ATTEND Radiology Vascular & Interventional Radiology
DX: K70.31 Alcoholic cirrhosis of liver with ascites (principal); I13.0 Hypertensive heart and chronic kidney disease with heart failure and stage 1 through stage 4 chronic kidney disease, or unspecified chronic kidney disease; N18.9 Chronic kidney disease, unspecified; I50.9 Heart failure, unspecified; K76.6 Portal hypertension; Z91.040 Latex allergy status; Z88.5 Allergy status to narcotic agent; Z79.899 Other long term (current) drug therapy; Z80.3 Family history of malignant neoplasm of breast; Z80.0 Family history of malignant neoplasm of digestive organs; Z82.49 Family history of ischemic heart disease and other diseases of the circulatory system; Z80.51 Family history of malignant neoplasm of kidney; Z80.52 Family history of malignant neoplasm of bladder
CPT/HCPCS: 49083; P9047

== ENCOUNTER 2020-04-12 06:11 | Day surgery (SDC) | payer MEDICAID ==
[~2020-04-12] VITALS: Ht 157.5 cm; Wt 100.8 kg
[2020-04-12] VITALS (9 sets, daily range): BP systolic 103–128; BP diastolic 63–76
[~2020-04-12 06:11] MED LIST changes: -CEFD300C3 PO; +FENT1PAT7; -HYDR2TAB28 PO; -LACT1CAP26 PO
[2020-04-12] MEDS ORDERED: METH5TAB2 PO (06:38)
[2020-04-12] MEDS ORDERED: HYDR2TAB7 PO (06:38)
[2020-04-12] MEDS ORDERED: NITR100C11 PO (06:38)
[2020-04-12] MEDS ORDERED: ONDA4TAB12 PO (06:38)
[2020-04-12] MEDS ORDERED: FENT-90 TD (06:38)
[2020-04-12] MEDS: albumin 25% 100mL bottle x 1 IV PRN ×2 (08:34→09:35)
== END 2020-04-12 10:45 | disposition home or self-care (01) ==
LOC: SSTAY O 06:11
PROVIDERS: ATTEND Radiology Vascular & Interventional Radiology
DX: K70.31 Alcoholic cirrhosis of liver with ascites (principal); I50.9 Heart failure, unspecified; N18.9 Chronic kidney disease, unspecified; K76.6 Portal hypertension; Z91.040 Latex allergy status; Z88.5 Allergy status to narcotic agent; Z79.899 Other long term (current) drug therapy; Z80.0 Family history of malignant neoplasm of digestive organs; Z80.3 Family history of malignant neoplasm of breast; Z80.52 Family history of malignant neoplasm of bladder; Z80.51 Family history of malignant neoplasm of kidney; Z82.49 Family history of ischemic heart disease and other diseases of the circulatory system
CPT/HCPCS: 49083; P9047

== ENCOUNTER 2020-04-18 08:05 | Day surgery (SDC) | payer MEDICAID ==
[2020-04-18] VITALS (8 sets, daily range): BP systolic 108–127; BP diastolic 60–79
[~2020-04-18] VITALS: Ht 157.5 cm; Wt 98.2 kg
[~2020-04-18 08:05] MED LIST changes: +FENT-90 TD; -FENT1PAT7; +HYDR2TAB7 PO; -MELA10TA2 PO; +METH5TAB2 PO; +NITR100C11 PO; +ONDA4TAB12 PO
[2020-04-18] MEDS ORDERED: albumin 25% 100mL bottle x 1 IV PRN (08:40)
--- NOTE | 2020-04-18 08:50 | NUR ---
AVIS Hollis at bedside. Order received for 4mg Zofran IV, one time dose.
[2020-04-18] MEDS ORDERED: ondansetron/PF 4mg/2ml inj IV ONE (09:15)
[2020-04-19] MEDS ORDERED: MELA10CA2 PO (21:37)
[2020-04-19] MEDS ORDERED: LACT1CAP26 PO (21:37)
== END 2020-04-18 11:00 | disposition home or self-care (01) ==
LOC: SSTAY O 08:05
PROVIDERS: ATTEND Radiology Diagnostic Radiology
DX: K70.31 Alcoholic cirrhosis of liver with ascites (principal); I50.9 Heart failure, unspecified; N18.9 Chronic kidney disease, unspecified; E87.1 Hypo-osmolality and hyponatremia; E87.5 Hyperkalemia; I27.20 Pulmonary hypertension, unspecified; Z91.040 Latex allergy status; Z88.5 Allergy status to narcotic agent; Z79.899 Other long term (current) drug therapy; Z82.49 Family history of ischemic heart disease and other diseases of the circulatory system; Z80.3 Family history of malignant neoplasm of breast; Z80.52 Family history of malignant neoplasm of bladder; Z80.0 Family history of malignant neoplasm of digestive organs; Z80.51 Family history of malignant neoplasm of kidney
CPT/HCPCS: 49083; J2405; P9047

== ENCOUNTER 2020-04-19 19:40 | Inpatient (IN) | payer MEDICAID ==
[~2020-04-19] VITALS: Ht 165.1 cm; Wt 87.5 kg
--- NOTE | 2020-04-19 19:51 | NUR ---
[facility] [phone]
[2020-04-19 20:49] LABS: BASOPHILS % (AUTO) 0.7 % (0-1); EOSINOPHILS % (AUTO) 0.5 % (0-6); HEMOGLOBIN 7.7 g/dl (12.0-16.0); LYMPHOCYTES # (AUTO) 0.4 X10'3 (1.1-4.8); LYMPHOCYTES % (AUTO) 9.4 % (21-51); MEAN CORPUSCULAR HEMOGLOBIN 36.6 PG (27.0-31.0); MEAN CORPUSCULAR VOLUME 104.3 FL (78-98); MEAN PLATELET VOLUME 10.7 FL (7.4-10.4); MONOCYTES # (AUTO) 0.4 X10'3 (0-0.9); MONOCYTES % (AUTO) 9.2 % (2-12); NEUTROPHILS # (AUTO) 3.7 X10'3 (1.8-7.7); NEUTROPHILS % (AUTO) 80.2 % (42-75); PLATELET COUNT 65 X10'3 (140-440); RED CELL DISTRIBUTION WIDTH 14.2 % (11.5-14.5); WHITE BLOOD COUNT 4.6 X10'3 (4.5-11.0)
[2020-04-19 20:54] LABS: CLARITY,URINE CLOUDY (Clear); COLOR,URINE YELLOW (Yellow); GLUCOSE, URINE NEGATIVE (Neg); KETONES,URINE TRACE mg/dl (Neg); LEUKOCYTE ESTERASE ,URINE MODERATE (Neg); NITRITES, URINE NEGATIVE (Neg); OCCULT BLOOD,URINE LARGE (Neg); PROTEIN,URINE 100 mg/dl (Neg); UROBILINOGEN,URINE 0.2 E.U/dL (0.2-1.0)
[2020-04-19 21:02] LABS: HEMATOCRIT 21.9 % (35.0-45.0)
[2020-04-19 21:04] LABS: ALANINE AMINOTRANSFERASE 39 U/L (12-78); ALBUMIN 2.9 G/DL (3.4-5.0); ALKALINE PHOSPHATASE 123 IU/L (46-116); ANION GAP 12 (8-16); ASPARTATE AMINO TRANSFERASE 50 U/L (10-37); BILIRUBIN,TOTAL 5.7 MG/DL (0.1-1.0); BLOOD UREA NITROGEN 38 MG/DL (7-18); BUN/CREATININE RATIO 11.7 (6.6-38.0); CALCIUM 9.9 MG/DL (8.5-10.1); CHLORIDE 104 MMOL/L (99-107); CREATININE 3.25 MG/DL (0.40-0.90); GLUCOSE 124 MG/DL (70-104); SODIUM 137 MMOL/L (135-145); TOTAL CARBON DIOXIDE 21.2 MMOL/L (24-32); eGFR 15 ML/MIN
[2020-04-19] MEDS ORDERED: lactulose 20gm/30ml cup RC ONE (21:05)
[2020-04-19 21:08] LABS: LIPASE 316 U/L (73-393); TROPONIN I < 0.04 NG/ML (0.0-0.05)
[2020-04-19 21:09] LABS: POTASSIUM 3.9 MMOL/L (3.5-5.1); TOTAL PROTEIN 5.8 G/DL (6.4-8.2)
[2020-04-19 21:13] LABS: UA COLLECTION TYPE STRAIGHT CATH
[2020-04-19 21:14] LABS: BACTERIA,URINE FEW /HPF (Neg); RBC,URINE 50-100 /HPF (0-2); SQUAMOUS EPITHELIAL CELL,UR FEW /LPF (FEW); WBC,URINE 0-4 /HPF (0-4)
[2020-04-19] MEDS ORDERED: MELA10CA2 PO (21:37)
[2020-04-19] MEDS ORDERED: LACT1CAP26 PO (21:37)
[2020-04-19] MEDS ORDERED: potassium CL 10mEq/100ml bag 100 ML IV PRN ×2 (22:10)
[2020-04-19] MEDS ORDERED: magnesium 2GM in 50ml NS 50 ML IV PRN (22:10)
[2020-04-19] MEDS ORDERED: ondansetron/PF 4mg/2ml inj IV PRN (22:10)
[2020-04-19] MEDS ORDERED: potassium Cl 20 mEq SR tablet PO PRN (22:10)
[2020-04-19] MEDS ORDERED: magnesium Cl slow-release 64mg tablet PO PRN (22:10)
[2020-04-19] MEDS ORDERED: magnesium 4gm in 100ml NS 100 ML IV PRN (22:10)
[2020-04-19 23:20] VITALS: BP 140/79
[2020-04-20] MEDS ORDERED: LORazepam 2 mg/ml vial IV ONE (01:35)
[2020-04-20] MEDS: lactulose 20gm/30ml cup PO SCH ×8 (02:13→22:42)
[2020-04-20 03:00] VITALS: BP 138/67
[2020-04-20 05:14] LABS: BASOPHILS % (AUTO) 0.5 % (0-1); EOSINOPHILS # (AUTO) 0.1 X10'3 (0-0.9); EOSINOPHILS % (AUTO) 1.2 % (0-6); HEMATOCRIT 23.4 % (35.0-45.0); LYMPHOCYTES # (AUTO) 0.7 X10'3 (1.1-4.8); LYMPHOCYTES % (AUTO) 12.7 % (21-51); MEAN CORPUSCULAR HEMOGLOBIN 35.3 PG (27.0-31.0); MEAN PLATELET VOLUME 10.5 FL (7.4-10.4); MONOCYTES # (AUTO) 0.6 X10'3 (0-0.9); MONOCYTES % (AUTO) 11.8 % (2-12); NEUTROPHILS % (AUTO) 73.8 % (42-75); PLATELET COUNT 65 X10'3 (140-440); RED BLOOD COUNT 2.25 X10'6 (4.20-5.60); RED CELL DISTRIBUTION WIDTH 15.1 % (11.5-14.5); WHITE BLOOD COUNT 5.5 X10'3 (4.5-11.0)
[2020-04-20 05:25] LABS: ANION GAP 13 (8-16); BLOOD UREA NITROGEN 37 MG/DL (7-18); BUN/CREATININE RATIO 11.7 (6.6-38.0); CHLORIDE 105 MMOL/L (99-107); CREATININE 3.15 MG/DL (0.40-0.90); GLUCOSE 105 MG/DL (70-104); MAGNESIUM 2.1 MG/DL (1.5-2.4); POTASSIUM 3.7 MMOL/L (3.5-5.1); SODIUM 140 MMOL/L (135-145); TOTAL CARBON DIOXIDE 22.4 MMOL/L (24-32); eGFR 16 ML/MIN
[2020-04-20 06:00] VITALS: BP 146/85
--- NOTE | 2020-04-20 06:30 | NUR ---
Problems reprioritized. Patient report given, questions answered & plan of care reviewed with DANIEL SMITH.
--- NOTE | 2020-04-20 06:39 | NUR ---
Patient in room PCU 3027. I have received report from Lillie SMITH and had the opportunity to ask questions and assume patient care.
[2020-04-20] MEDS ORDERED: pantoprazole 40 MG vial IV SCH (08:00)
[2020-04-20] MEDS: K and/or MAG REPLACEMENT MC SCH ×2 (08:00→19:46)
[2020-04-20] MEDS: furosemide 40mg/4ml inj IV SCH (08:43)
[2020-04-20] MEDS: pantoprazole 40mg Tablet.DR PO SCH (09:12)
[2020-04-20] MEDS ORDERED: LORazepam 2 mg/ml vial IV PRN (09:15)
[2020-04-20] MEDS ORDERED: haloperidol 5mg tablet PO PRN (09:15)
[2020-04-20] MEDS ORDERED: LORazepam 1 MG tablet PO PRN (09:15)
[2020-04-20] MEDS ORDERED: thiamine inj. 100 MG in normal saline 100ml IV soln 100 ML IV ONE (09:15)
[2020-04-20] MEDS ORDERED: haloperidol lactate 5mg/ml inj IM PRN (09:15)
[2020-04-20] MEDS: CefTRIAXone/D5W-Rocephin 1gm 50 ML IV SCH (10:58)
[2020-04-20 11:00] VITALS: BP 137/89
[2020-04-20] MEDS ORDERED: lactulose 20gm/30ml cup RC ONE (12:30)
--- NOTE | 2020-04-20 12:36 | NUR ---
held 1200 scheduled po lactulose, 200gm lactulose via rectal tube administered per dr. patel.
[2020-04-20] MEDS: sucralfate 1 gm tablet PO SCH ×3 (14:37→20:32)
[2020-04-20 15:00] VITALS: BP 125/66
--- NOTE | 2020-04-20 16:54 | NUR ---
PAGER ID: [phone] MESSAGE: [id number]: Spoke w/ significant other, sreedhar, and he states last time she took rifaximin and it helped her snap out quicker than lactulose. thanks faraz [phone]
--- NOTE | 2020-04-20 16:55 | NUR ---
received orders to place NG tube and increase lactulose to q2h and rifaximin 550 mg PO BID Addendum: 04/20/20 at 1657 by Natlai Palma RN per dr. patel
[2020-04-20 17:34] LABS: CLARITY,URINE CLOUDY (Clear); COLOR,URINE YELLOW (Yellow); GLUCOSE, URINE NEGATIVE (Neg); KETONES,URINE NEGATIVE (Neg); LEUKOCYTE ESTERASE ,URINE LARGE (Neg); NITRITES, URINE NEGATIVE (Neg); OCCULT BLOOD,URINE LARGE (Neg); PROTEIN,URINE TRACE mg/dl (Neg); UROBILINOGEN,URINE 0.2 E.U/dL (0.2-1.0)
[2020-04-20 17:38] LABS: TOTAL PROTEIN,URINE RANDOM 25.2 MG/DL
[2020-04-20 17:40] LABS: UA COLLECTION TYPE STRAIGHT CATH; URINE AMPHETAMINE SCREEN NEGATIVE (Neg); URINE BARBITUATE SCREEN NEGATIVE (Neg); URINE BENZODIAZEPINES SCREEN NEGATIVE (Neg); URINE CANNABINOID SCREEN NEGATIVE (Neg); URINE COCAINE SCREEN NEGATIVE (Neg); URINE METHADONE SCREEN NEGATIVE (Neg); URINE OPIATE SCREEN NEGATIVE (Neg); URINE PHENCYCLIDINE SCREEN NEGATIVE (Neg)
[2020-04-20 17:41] LABS: BACTERIA,URINE FEW /HPF (Neg); MUCUS STRANDS NONE SEEN /LPF (Neg); RBC,URINE TNTC /HPF (0-2); SQUAMOUS EPITHELIAL CELL,UR FEW /LPF (FEW); WBC,URINE 30-50 /HPF (0-4)
--- NOTE | 2020-04-20 17:58 | NUR ---
unable to dart due to confusion
[2020-04-20 18:00] VITALS: BP 153/99
[2020-04-20 18:16] LABS: UA EOSINOPHILS NO EOS /HPF
--- NOTE | 2020-04-20 18:19 | NUR ---
Patient in room PCU 3026E. I have received report from Natali SMITH and had the opportunity to ask questions and assume patient care.
--- NOTE | 2020-04-20 18:19 | NUR ---
Problems reprioritized. Patient report given, questions answered & plan of care reviewed with Aretha SMITH.
[2020-04-20] MEDS: rifaximin 550mg tablet PO SCH (19:10)
[2020-04-20] MEDS ORDERED: LIDOcaine 2% 10ml TOPICAL JELLY (Urojet) TP ONE (19:45)
[2020-04-20] MEDS: Melatonin 3mg tablet PO SCH (20:32)
[2020-04-20 22:00] VITALS: BP 129/69
--- NOTE | 2020-04-20 23:32 | NUR ---
PAGER ID: [phone] MESSAGE: [address] [id number]: Patient had a 17 beat run of Vtach. 24 hour tele almost up. Would you like to renew tele order? -Aretha SMITH [phone]
--- NOTE | 2020-04-21 00:32 | NUR ---
PAGER ID: [phone] MESSAGE: [address] [id number]: Will you please renew patients order for restraints? Thanks. -Aretha SMITH 7422
[2020-04-21] MEDS: lactulose 20gm/30ml cup PO SCH ×7 (01:46→20:29)
[2020-04-21 02:00] VITALS: BP 126/66
[2020-04-21 05:51] LABS: BASOPHILS % (AUTO) 0.7 % (0-1); EOSINOPHILS # (AUTO) 0.1 X10'3 (0-0.9); HEMOGLOBIN 7.3 g/dl (12.0-16.0); LYMPHOCYTES # (AUTO) 0.4 X10'3 (1.1-4.8); LYMPHOCYTES % (AUTO) 10.5 % (21-51); MEAN CORPUSCULAR HEMOGLOBIN 35.2 PG (27.0-31.0); MEAN CORPUSCULAR VOLUME 103.5 FL (78-98); MEAN PLATELET VOLUME 10.6 FL (7.4-10.4); MONOCYTES # (AUTO) 0.4 X10'3 (0-0.9); MONOCYTES % (AUTO) 10.4 % (2-12); NEUTROPHILS # (AUTO) 3.1 X10'3 (1.8-7.7); NEUTROPHILS % (AUTO) 76.4 % (42-75); PLATELET COUNT 55 X10'3 (140-440); RED BLOOD COUNT 2.07 X10'6 (4.20-5.60); RED CELL DISTRIBUTION WIDTH 14.9 % (11.5-14.5); WHITE BLOOD COUNT 4.1 X10'3 (4.5-11.0)
[2020-04-21 06:02] LABS: HEMATOCRIT 21.4 % (35.0-45.0)
--- NOTE | 2020-04-21 06:10 | NUR ---
PAGER ID: [phone] MESSAGE: [address] [id number]: h&h came back critical. hct 21.4, hgb 7.3 -Aretha SMITH [phone]
--- NOTE | 2020-04-21 06:15 | NUR ---
Problems reprioritized. Patient report given, questions answered & plan of care reviewed with Danay SMITH.
[2020-04-21 06:20] LABS: ALANINE AMINOTRANSFERASE 39 U/L (12-78); ALBUMIN 2.6 G/DL (3.4-5.0); ALKALINE PHOSPHATASE 102 IU/L (46-116); ANION GAP 10 (8-16); ASPARTATE AMINO TRANSFERASE 52 U/L (10-37); BILIRUBIN,TOTAL 7.1 MG/DL (0.1-1.0); BLOOD UREA NITROGEN 34 MG/DL (7-18); BUN/CREATININE RATIO 12.2 (6.6-38.0); CALCIUM 9.8 MG/DL (8.5-10.1); CHLORIDE 105 MMOL/L (99-107); CREATININE 2.78 MG/DL (0.40-0.90); GLUCOSE 116 MG/DL (70-104); POTASSIUM 3.4 MMOL/L (3.5-5.1); SODIUM 141 MMOL/L (135-145); TOTAL CARBON DIOXIDE 25.9 MMOL/L (24-32); eGFR 18 ML/MIN
--- NOTE | 2020-04-21 06:21 | NUR ---
Patient in room PCU 3027. I have received report from Aretha SMITH and had the opportunity to ask questions and assume patient care.
[2020-04-21 06:42] LABS: ALBUMIN/GLOBULIN RATIO 0.9 (1.1-1.5); PHOSPHORUS 3.3 MG/DL (2.3-4.5); TOTAL PROTEIN 5.4 G/DL (6.4-8.2)
[2020-04-21 07:00] VITALS: BP 117/59
[2020-04-21] MEDS ORDERED: furosemide 40mg tablet PO SCH (08:00)
[2020-04-21] MEDS: K and/or MAG REPLACEMENT MC SCH ×2 (08:00→20:00)
[2020-04-21] MEDS: CefTRIAXone/D5W-Rocephin 1gm 50 ML IV SCH (08:00)
[2020-04-21] MEDS: pantoprazole 40mg Tablet.DR PO SCH (09:49)
[2020-04-21] MEDS: spironolactone 50 MG tablet PO SCH (09:49)
[2020-04-21] MEDS: furosemide 40mg/4ml inj IV SCH (09:49)
[2020-04-21] MEDS: multivitamins, therapeutics tablet PO SCH (09:50)
[2020-04-21] MEDS: sucralfate 1 gm tablet PO SCH ×4 (09:50→20:19)
[2020-04-21] MEDS: thiamine 100mg tablet PO SCH (09:50)
[2020-04-21] MEDS: folic acid 1mg tablet PO SCH (09:50)
[2020-04-21] MEDS: rifaximin 550mg tablet PO SCH ×2 (09:50→20:19)
[2020-04-21] MEDS: potassium Cl 20 mEq SR tablet PO PRN ×2 (09:51→17:13)
[2020-04-21 11:00] VITALS: BP 128/64
[2020-04-21 11:01] LABS: FERRITIN 107 NG/ML (8-252)
[2020-04-21 11:19] LABS: % IRON SATURATION 93 % (11-46); IRON 109 UG/DL (49-151); TOTAL IRON BINDING CAPACITY 117 UG/DL (259-388)
[2020-04-21] MEDS: phytonadione inj. 10 MG in normal saline 100ml IV soln 100 ML IV SCH (12:45)
[2020-04-21] MEDS ORDERED: acetaminophen 325mg tablet PO PRN (13:10)
--- NOTE | 2020-04-21 13:16 | NUR ---
Received verbal orders from Dr. Coronado at bedside to d/c cesar, rectal tube and NG tube. Pt to pass bedside swallow study and then have heart healthy diet. Pt had no prn for pain. For today 650 mg tylenol PO Q6 not to exceed 2 grams in 24 hours.
[2020-04-21 15:00] VITALS: BP 129/92
[2020-04-21 16:10] LABS: OCCULT BLOOD STOOL POSITIVE (Neg)
[2020-04-21] MEDS ORDERED: POTASSIUM BICARB 20meq eff tab 20 MEQ TABLET.EFF PO PRN ×2 (17:35)
[2020-04-21] MEDS ORDERED: octreotide inj. 500 MCG in normal saline 100ml IV soln 100 ML IV SCH (17:45)
[2020-04-21] MEDS ORDERED: octreotide 100mcg/1 ml ampule SQ ONE (17:45)
[2020-04-21] MEDS ORDERED: NORMAL SALINE IV SCH (17:50)
[2020-04-21] MEDS ORDERED: OCTREOTIDE IV SCH (17:50)
[2020-04-21] MEDS ORDERED: octreotide inj. 1,250 MCG in normal saline 250ml IV soln 243.75 ML IV SCH (17:54)
--- NOTE | 2020-04-21 18:19 | NUR ---
Problems reprioritized. Patient report given, questions answered & plan of care reviewed with Helen SMITH.
[2020-04-21 18:30] VITALS: BP 130/77
[2020-04-21] MEDS: Melatonin 3mg tablet PO SCH (20:20)
[2020-04-21] MEDS: pantoprazole 40MG/NS 100ML BAG 100 ML IV SCH (21:40)
[2020-04-22] VITALS (20 sets, daily range): BP systolic 101–136; BP diastolic 45–85
[2020-04-22] MEDS: pantoprazole 40MG/NS 100ML BAG 100 ML IV SCH ×5 (02:13→23:47)
[2020-04-22] MEDS: lactulose 20gm/30ml cup PO SCH ×4 (02:13→20:41)
--- NOTE | 2020-04-22 04:32 | NUR ---
pt has been voiding and having BMS in bedside commode
[2020-04-22 05:23] LABS: BASOPHILS % (AUTO) 0.6 % (0-1); EOSINOPHILS # (AUTO) 0.1 X10'3 (0-0.9); EOSINOPHILS % (AUTO) 3.8 % (0-6); HEMOGLOBIN 7.1 g/dl (12.0-16.0); LYMPHOCYTES # (AUTO) 0.5 X10'3 (1.1-4.8); MONOCYTES # (AUTO) 0.4 X10'3 (0-0.9)
[2020-04-22 05:27] LABS: LYMPHOCYTES % (AUTO) 15.9 % (21-51); MEAN CORPUSCULAR HEMOGLOBIN 35.3 PG (27.0-31.0); MEAN CORPUSCULAR VOLUME 103.9 FL (78-98); MEAN PLATELET VOLUME 10.2 FL (7.4-10.4); MONOCYTES % (AUTO) 12.5 % (2-12); NEUTROPHILS # (AUTO) 2.2 X10'3 (1.8-7.7); NEUTROPHILS % (AUTO) 67.2 % (42-75); RED CELL DISTRIBUTION WIDTH 15.5 % (11.5-14.5); WHITE BLOOD COUNT 3.3 X10'3 (4.5-11.0)
[2020-04-22 05:31] LABS: ALANINE AMINOTRANSFERASE 34 U/L (12-78); ALBUMIN 2.4 G/DL (3.4-5.0); ALBUMIN/GLOBULIN RATIO 0.9 (1.1-1.5); ALKALINE PHOSPHATASE 96 IU/L (46-116); ANION GAP 9 (8-16); ASPARTATE AMINO TRANSFERASE 45 U/L (10-37); BILIRUBIN,TOTAL 6.6 MG/DL (0.1-1.0); BLOOD UREA NITROGEN 30 MG/DL (7-18); BUN/CREATININE RATIO 11.9 (6.6-38.0); CALCIUM 9.4 MG/DL (8.5-10.1); CHLORIDE 107 MMOL/L (99-107); CREATININE 2.52 MG/DL (0.40-0.90); GLUCOSE 111 MG/DL (70-104); MAGNESIUM 1.8 MG/DL (1.5-2.4); POTASSIUM 3.7 MMOL/L (3.5-5.1); SODIUM 142 MMOL/L (135-145); TOTAL CARBON DIOXIDE 25.8 MMOL/L (24-32); TOTAL PROTEIN 5.1 G/DL (6.4-8.2); eGFR 20 ML/MIN
[2020-04-22 05:34] LABS: HEMATOCRIT 20.7 % (35.0-45.0)
[2020-04-22 05:35] LABS: PLATELET COUNT 47 X10'3 (140-440)
--- NOTE | 2020-04-22 06:08 | NUR ---
Problems reprioritized. Patient report given, questions answered & plan of care reviewed with Danay SMITH.
--- NOTE | 2020-04-22 07:11 | NUR ---
Patient in room PCU 3027. I have received report from Helen SMITH and had the opportunity to ask questions and assume patient care.
[2020-04-22] MEDS: K and/or MAG REPLACEMENT MC SCH ×2 (07:33→20:00)
[2020-04-22] MEDS: sucralfate 1 gm tablet PO SCH ×4 (07:33→20:42)
[2020-04-22] MEDS: spironolactone 50 MG tablet PO SCH (07:33)
[2020-04-22] MEDS: CefTRIAXone/D5W-Rocephin 1gm 50 ML IV SCH (07:33)
[2020-04-22] MEDS: furosemide 40mg/4ml inj IV SCH (07:33)
[2020-04-22] MEDS: rifaximin 550mg tablet PO SCH ×2 (07:34→20:41)
[2020-04-22] MEDS: folic acid 1mg tablet PO SCH (07:34)
[2020-04-22] MEDS: thiamine 100mg tablet PO SCH (07:34)
[2020-04-22] MEDS: multivitamins, therapeutics tablet PO SCH (07:34)
[2020-04-22] MEDS: phytonadione inj. 10 MG in normal saline 100ml IV soln 100 ML IV SCH (10:19)
[2020-04-22] MEDS ORDERED: LIDOcaine Viscous 15ml cup ONE (11:50)
[2020-04-22] MEDS ORDERED: MIDAZolam 5mg/5ml vial ONE (11:50)
[2020-04-22] MEDS ORDERED: fentaNYL/PF 50MCG/1 ML 2ML syringe ONE (11:50)
--- NOTE | 2020-04-22 18:12 | NUR ---
Problems reprioritized. Patient report given, questions answered & plan of care reviewed with Helen SMITH.
--- NOTE | 2020-04-22 18:21 | NUR ---
Patient in room PCU 3027. I have received report from Violet SMITH and had the opportunity to ask questions and assume patient care.
--- NOTE | 2020-04-22 19:01 | NUR ---
emptied pt commode half full of stool and urine mix. pt refused bed bath, stated she wiped herself up this am and had clean gown on. pt has home fentanyl patch on left shoulder
[2020-04-22] MEDS ORDERED: FENT-90 TOP (19:11)
--- NOTE | 2020-04-22 19:40 | NUR ---
fentanyl patch added back to [facility], waiting for MD to address. pt resting at this time
[2020-04-22] MEDS: Melatonin 3mg tablet PO SCH (20:41)
[2020-04-23] MEDS: pantoprazole 40MG/NS 100ML BAG 100 ML IV SCH ×3 (01:00→10:17)
[2020-04-23 02:00] VITALS: BP 109/60
[2020-04-23] MEDS: lactulose 20gm/30ml cup PO SCH ×3 (02:18→14:27)
[2020-04-23 05:08] LABS: BASOPHILS % (AUTO) 1.3 % (0-1); EOSINOPHILS # (AUTO) 0.1 X10'3 (0-0.9); EOSINOPHILS % (AUTO) 3.6 % (0-6); HEMATOCRIT 24.4 % (35.0-45.0); HEMOGLOBIN 8.2 g/dl (12.0-16.0); LYMPHOCYTES # (AUTO) 0.3 X10'3 (1.1-4.8); LYMPHOCYTES % (AUTO) 7.7 % (21-51); MEAN CORPUSCULAR HEMOGLOBIN 34.1 PG (27.0-31.0); MEAN CORPUSCULAR HGB CONC 33.5 g/dL (33.0-36.5); MEAN CORPUSCULAR VOLUME 101.7 FL (78-98); MEAN PLATELET VOLUME 9.4 FL (7.4-10.4); MONOCYTES # (AUTO) 0.4 X10'3 (0-0.9); MONOCYTES % (AUTO) 11.4 % (2-12); NEUTROPHILS # (AUTO) 2.5 X10'3 (1.8-7.7); RED CELL DISTRIBUTION WIDTH 16.7 % (11.5-14.5); WHITE BLOOD COUNT 3.3 X10'3 (4.5-11.0)
[2020-04-23 05:19] LABS: PLATELET COUNT 47 X10'3 (140-440)
[2020-04-23 05:23] LABS: ALANINE AMINOTRANSFERASE 42 U/L (12-78); ALBUMIN 2.5 G/DL (3.4-5.0); ALKALINE PHOSPHATASE 97 IU/L (46-116); ANION GAP 7 (8-16); ASPARTATE AMINO TRANSFERASE 58 U/L (10-37); BILIRUBIN,TOTAL 7.2 MG/DL (0.1-1.0); BLOOD UREA NITROGEN 25 MG/DL (7-18); BUN/CREATININE RATIO 10.8 (6.6-38.0); CHLORIDE 109 MMOL/L (99-107); CREATININE 2.31 MG/DL (0.40-0.90); GLUCOSE 144 MG/DL (70-104); MAGNESIUM 1.8 MG/DL (1.5-2.4); POTASSIUM 3.4 MMOL/L (3.5-5.1); SODIUM 140 MMOL/L (135-145); eGFR 22 ML/MIN
[2020-04-23 05:24] LABS: ALBUMIN/GLOBULIN RATIO 0.9 (1.1-1.5); PHOSPHORUS 2.6 MG/DL (2.3-4.5); TOTAL PROTEIN 5.3 G/DL (6.4-8.2)
--- NOTE | 2020-04-23 05:45 | NUR ---
emptied commode. more urine than stool this time.
--- NOTE | 2020-04-23 06:12 | NUR ---
Problems reprioritized. Patient report given, questions answered & plan of care reviewed with Danay SMITH.
--- NOTE | 2020-04-23 06:42 | NUR ---
pt is wearing 2 necklaces, one of which is kat silver and contains her fathers ashed. she has discovered it is ,issing the pendant. a very heavy kat heart with ashes in it and one side says i love you makenna
--- NOTE | 2020-04-23 06:44 | NUR ---
she has looked through all belongings and I have searched table and floor and bed and linens basket with no lucik. Danay SMITH aware
--- NOTE | 2020-04-23 06:48 | NUR ---
Patient in room PCU 3027. I have received report from Helen SMITH and had the opportunity to ask questions and assume patient care.
[2020-04-23 07:00] VITALS: BP 115/63
[2020-04-23] MEDS: K and/or MAG REPLACEMENT MC SCH (08:00)
[2020-04-23] MEDS ORDERED: phytonadione 10 MG/1 ML amp PO SCH (09:25)
[2020-04-23] MEDS ORDERED: RIFA550T PO (10:10)
[2020-04-23] MEDS ORDERED: PHYT100T PO (10:10)
[2020-04-23] MEDS ORDERED: FOLI0.4T2 PO (10:10)
[2020-04-23] MEDS ORDERED: THIA50TA10 PO (10:10)
[2020-04-23] MEDS ORDERED: LACT10SO32 PO (10:10)
[2020-04-23] MEDS ORDERED: CEFD300C3 PO (10:10)
[2020-04-23] MEDS ORDERED: MULT-25 PO (10:10)
[2020-04-23] MEDS ORDERED: ASCO-134 PO (10:14)
[2020-04-23] MEDS ORDERED: FERR325T28 PO (10:14)
[2020-04-23] MEDS: CefTRIAXone/D5W-Rocephin 1gm 50 ML IV SCH (10:15)
[2020-04-23] MEDS: furosemide 40mg/4ml inj IV SCH (10:15)
[2020-04-23] MEDS: folic acid 1mg tablet PO SCH (10:16)
[2020-04-23] MEDS: multivitamins, therapeutics tablet PO SCH (10:16)
[2020-04-23] MEDS: spironolactone 50 MG tablet PO SCH (10:16)
[2020-04-23] MEDS: sucralfate 1 gm tablet PO SCH ×2 (10:16→12:21)
[2020-04-23] MEDS: thiamine 100mg tablet PO SCH (10:16)
[2020-04-23] MEDS: rifaximin 550mg tablet PO SCH (10:33)
[2020-04-23 11:00] VITALS: BP 128/80
[2020-04-23] MEDS ORDERED: pneumococcal 23-VAL P-sac vacc 25 mcg/0.5ml vial IMVAC ONE (11:00)
[2020-04-23] MEDS ORDERED: FLU VACC QS2020-21(6MOS UP)/PF 60 MCG/0.5 ML SYRINGE IMVAC ONE (11:00)
--- NOTE | 2020-04-23 15:25 | NUR ---
Patient was discharged to home . Her picked her up. PIV was removed with cannula intact. RX were escripted to [facility] in [place]. DC instructions were reviewed with patient and she verbalized understanding. She was given the opportunity to ask questions about medications, care, and follow up. Patient belongings went with her except a heart pendant that had her fathers ashes in it. she noticed it was gone last night and RN Helen looked everywhere for it. i kept my eyes out for it but we did not find. Patient is very disappointed. PT alert, oriented, and appropriate at time of DC, but very ill looking and slightly jaundiced.
== END 2020-04-23 15:25 | disposition home health service (06) | DRG 280 ==
LOC: ER 19:41 → ED HOLD 22:07 → EDBEDREQ 22:48 → PCU 3S 23:10
PROVIDERS: ADMIT Internal Medicine; ATTEND Family Medicine
PROC: 06L38CZ Occlusion of Esophageal Vein with Extraluminal Device, Via Natural or Artificial Opening Endoscopic (ICD-10-PCS; principal; 2020-04-22)
DX: K70.31 Alcoholic cirrhosis of liver with ascites (principal); K72.90 Hepatic failure, unspecified without coma; D64.9 Anemia, unspecified; F10.20 Alcohol dependence, uncomplicated; N18.5 Chronic kidney disease, stage 5; N39.0 Urinary tract infection, site not specified; Z51.5 Encounter for palliative care; N17.9 Acute kidney failure, unspecified; K76.6 Portal hypertension; D68.9 Coagulation defect, unspecified; I13.2 Hypertensive heart and chronic kidney disease with heart failure and with stage 5 chronic kidney disease, or end stage renal disease; I85.00 Esophageal varices without bleeding; K92.2 Gastrointestinal hemorrhage, unspecified; D69.6 Thrombocytopenia, unspecified; K76.7 Hepatorenal syndrome; I50.9 Heart failure, unspecified; I25.2 Old myocardial infarction; Z78.1 Physical restraint status; Z80.3 Family history of malignant neoplasm of breast; Z82.49 Family history of ischemic heart disease and other diseases of the circulatory system; Z90.710 Acquired absence of both cervix and uterus; Z85.528 Personal history of other malignant neoplasm of kidney; Z87.442 Personal history of urinary calculi; E66.01 Morbid (severe) obesity due to excess calories; Z68.32 Body mass index [BMI] 32.0-32.9, adult
CPT/HCPCS: 36415; 36430; 43244; 80048; 80053; 80305; 80320; 81001; 82140; 82272; 82570; 82728; 83540; 83550; 83690; 83735; 84100; 84156; 84300; 84484; 85025; 85610; 86885; 86900; 86901; 86920; 87081; 87088; 87207; 90732; 92508; 92616; 93005; 96374; 97110; 97161; 99152; 99285; A4620; C9113; G0378; J0696; J1940; J2060; J2250; J2354; J3010; J3411; J3430; J7040; J7050; P9016; P9059; Q2039

== ENCOUNTER 2020-04-29 08:08 | Day surgery (SDC) | payer MEDICAID ==
[2020-04-29] VITALS (8 sets, daily range): BP systolic 110–133; BP diastolic 55–79
[~2020-04-29] VITALS: Ht 157.5 cm; Wt 100.6 kg
[~2020-04-29 08:08] MED LIST changes: +ASCO-134 PO; +CEFD300C3 PO; -FENT-90 TD; +FERR325T28 PO; +FOLI0.4T2 PO; -HYDR2TAB7 PO; -LACT10SO PO; +LACT10SO32 PO; +LACT1CAP26 PO; +MELA10CA2 PO; -METH5TAB2 PO; +MULT-25 PO; -NITR100C11 PO; -ONDA4TAB12 PO; -OXYGEN NASALCANN; +PHYT100T PO; +RIFA550T PO; -SODI650T29 PO; +THIA50TA10 PO
[2020-04-29] MEDS ORDERED: albumin 25% 100mL bottle x 1 IV PRN (08:30)
[2020-04-29] MEDS ORDERED: MAGN400T28 PO (08:40)
[2020-04-29] MEDS ORDERED: PHYT100T PO (08:43)
[2020-04-29] MEDS ORDERED: FOLI0.4T14 PO (08:43)
[2020-04-29] MEDS ORDERED: FERR134T2 PO (08:43)
[2020-04-29] MEDS ORDERED: VITC500T PO (08:43)
[2020-04-29] MEDS ORDERED: THIA50TA10 PO (08:43)
== END 2020-04-29 11:20 | disposition home or self-care (01) ==
LOC: SSTAY O 08:08
PROVIDERS: ATTEND Radiology Vascular & Interventional Radiology
DX: K70.31 Alcoholic cirrhosis of liver with ascites (principal); N18.9 Chronic kidney disease, unspecified; E87.1 Hypo-osmolality and hyponatremia; E87.5 Hyperkalemia; K76.6 Portal hypertension; I50.9 Heart failure, unspecified; Z88.8 Allergy status to other drugs, medicaments and biological substances; Z88.5 Allergy status to narcotic agent; Z79.899 Other long term (current) drug therapy; Z91.040 Latex allergy status; Z82.49 Family history of ischemic heart disease and other diseases of the circulatory system; Z80.52 Family history of malignant neoplasm of bladder; Z80.3 Family history of malignant neoplasm of breast; Z80.0 Family history of malignant neoplasm of digestive organs; Z80.51 Family history of malignant neoplasm of kidney
CPT/HCPCS: 49083; P9047

== ENCOUNTER 2020-05-09 08:06 | Day surgery (SDC) | payer MEDICAID ==
[2020-05-09] VITALS (10 sets, daily range): BP systolic 96–125; BP diastolic 42–75
[~2020-05-09] VITALS: Ht 157.5 cm; Wt 101.2 kg
[~2020-05-09 08:06] MED LIST changes: -ASCO-134 PO; -CEFD300C3 PO; +FERR134T2 PO; -FERR325T28 PO; +FOLI0.4T14 PO; -FOLI0.4T2 PO; +MAGN400T28 PO; -MULT-25 PO; +VITC500T PO
[2020-05-09] MEDS ORDERED: CEFD300C3 PO (09:22)
[2020-05-09] MEDS ORDERED: PHYT100T PO (09:22)
[2020-05-09] MEDS ORDERED: MULT-227 PO (09:22)
[2020-05-09] MEDS ORDERED: LIDOcaine 1% (10mg/ml) 2ml vial ONE (11:16)
[2020-05-09] MEDS: albumin 25% 100mL bottle x 1 IV PRN ×2 (11:20→11:21)
== END 2020-05-09 12:58 | disposition home or self-care (01) ==
LOC: SSTAY O 08:06
PROVIDERS: ATTEND Radiology Vascular & Interventional Radiology
DX: K70.31 Alcoholic cirrhosis of liver with ascites (principal); N18.9 Chronic kidney disease, unspecified; I50.9 Heart failure, unspecified; K76.6 Portal hypertension; E87.1 Hypo-osmolality and hyponatremia; E87.5 Hyperkalemia; Z91.040 Latex allergy status; Z79.899 Other long term (current) drug therapy
CPT/HCPCS: 49083; J2001; P9047

== ENCOUNTER 2020-05-21 08:12 | Day surgery (SDC) | payer MEDICAID ==
[~2020-05-21 08:12] MED LIST changes: +CEFD300C3 PO; -FERR134T2 PO; -LACT10SO32 PO; +MULT-227 PO; -RIFA550T PO
[2020-05-21] MEDS ORDERED: LACT10SO PO (13:14)
[2020-05-21] MEDS ORDERED: RIFA550T PO (13:14)
[2020-05-21] MEDS ORDERED: THIA100T70 PO (13:14)
[2020-05-21] MEDS ORDERED: FERR-106 PO (13:14)
== END 2020-05-22 08:30 | disposition home or self-care (01) ==
LOC: SSTAY O 08:12
PROVIDERS: ATTEND Radiology Diagnostic Radiology
DX: R18.8 Other ascites (principal)

== ENCOUNTER 2020-05-21 08:25 | Inpatient (IN) | payer MEDICAID ==
[~2020-05-21] VITALS: Ht 157.5 cm; Wt 93.6 kg
[2020-05-21 09:18] LABS: BASOPHILS % (AUTO) 0.5 % (0-1); EOSINOPHILS # (AUTO) 0.2 X10'3 (0-0.9); EOSINOPHILS % (AUTO) 3.2 % (0-6); HEMATOCRIT 24.9 % (35.0-45.0); HEMOGLOBIN 8.5 g/dl (12.0-16.0); LYMPHOCYTES # (AUTO) 0.7 X10'3 (1.1-4.8); LYMPHOCYTES % (AUTO) 10.3 % (21-51); MEAN CORPUSCULAR HGB CONC 34.1 g/dL (33.0-36.5); MEAN CORPUSCULAR VOLUME 99.7 FL (78-98); MEAN PLATELET VOLUME 10.2 FL (7.4-10.4); MONOCYTES # (AUTO) 0.8 X10'3 (0-0.9); MONOCYTES % (AUTO) 10.8 % (2-12); NEUTROPHILS # (AUTO) 5.3 X10'3 (1.8-7.7); NEUTROPHILS % (AUTO) 75.2 % (42-75); PLATELET COUNT 94 X10'3 (140-440); RED CELL DISTRIBUTION WIDTH 15.7 % (11.5-14.5)
[2020-05-21 09:30] LABS: ALANINE AMINOTRANSFERASE 35 U/L (12-78); ALBUMIN 2.6 G/DL (3.4-5.0); ALKALINE PHOSPHATASE 137 IU/L (46-116); ANION GAP 9 (8-16); ASPARTATE AMINO TRANSFERASE 35 U/L (10-37); BILIRUBIN,TOTAL 5.2 MG/DL (0.1-1.0); BLOOD UREA NITROGEN 51 MG/DL (7-18); BUN/CREATININE RATIO 14.6 (6.6-38.0); CALCIUM 9.2 MG/DL (8.5-10.1); CHLORIDE 96 MMOL/L (99-107); CREATININE 3.49 MG/DL (0.40-0.90); GLUCOSE 126 MG/DL (70-104); POTASSIUM 5.3 MMOL/L (3.5-5.1); SODIUM 126 MMOL/L (135-145); TOTAL CARBON DIOXIDE 20.7 MMOL/L (24-32); eGFR 14 ML/MIN
[2020-05-21 09:34] LABS: PARTIAL THROMBOPLASTIN TIME 39 SECONDS (22-32)
[2020-05-21 09:38] LABS: ALBUMIN/GLOBULIN RATIO 0.8 (1.1-1.5)
[2020-05-21] MEDS ORDERED: lactulose 20gm/30ml cup PO ONE ×2 (09:45→11:50)
[2020-05-21] MEDS ORDERED: normal saline 1000ML IV soln IVB ONE (09:50)
[2020-05-21] MEDS ORDERED: magnesium hydroxide 30ml (MOM) UD suspension PO PRN (10:10)
[2020-05-21] MEDS ORDERED: potassium Cl 20 mEq SR tablet PO PRN ×2 (10:10)
[2020-05-21] MEDS ORDERED: acetaminophen 325mg tablet PO PRN (10:10)
[2020-05-21] MEDS ORDERED: magnesium 4gm in 100ml NS 100 ML IV PRN (10:10)
[2020-05-21] MEDS ORDERED: magnesium 2GM in 50ml NS 50 ML IV PRN (10:10)
[2020-05-21] MEDS ORDERED: potassium CL 10mEq/100ml bag 100 ML IV PRN ×2 (10:10)
[2020-05-21] MEDS ORDERED: mag hydrox/Alum hydrox/simeth 30ml oral suspension PO PRN (10:10)
[2020-05-21] MEDS ORDERED: ondansetron/PF 4mg/2ml inj IV PRN (10:10)
[2020-05-21] MEDS ORDERED: Lactulose Enema **for rectal use only RC ONE ×2 (10:45)
--- NOTE | 2020-05-21 11:38 | NUR ---
SPOKE TO DR CAT REGARDING LACTULOSE ENEMA ,NOTIFIED THAT PT ENEMA IS NOT GOING THROUGH ME ,TRISHA AND ALY SMITH TRIED AND ALSO NOTIFIED THAT PT GIVEN LACTULOSE 30 ML BY MOUTH EARLIER PER MD GIVE HER ANOTHER 30 ML OF ORAL LACTULOSE AND D/C ENEMA.
--- NOTE | 2020-05-21 12:01 | NUR ---
PT REPOSITIONED UP HIGHER WITH HELP OF JACKIE HILLS AND MEDICATED THE PT WITH LACTULOSE ORALLLY WITH 20 CC SYRINGE .PT WAS ABLE TO SWALLOW THE MEDICATION WITH ENCOURGEMENT .
[2020-05-21] MEDS ORDERED: RIFA550T PO (13:14)
[2020-05-21] MEDS ORDERED: THIA100T70 PO (13:14)
[2020-05-21] MEDS ORDERED: FERR-106 PO (13:14)
[2020-05-21] MEDS ORDERED: LACT10SO PO (13:14)
--- NOTE | 2020-05-21 13:46 | NUR ---
Patient in room ED 3. I have received report from Maynor and had the opportunity to ask questions and assume patient care.
[2020-05-21 14:29] VITALS: BP 151/83
--- NOTE | 2020-05-21 18:23 | NUR ---
Patient in room [facility] 358. I have received report from Shreyas SMITH and had the opportunity to ask questions and assume patient care.
--- NOTE | 2020-05-21 18:32 | NUR ---
Problems reprioritized. Patient report given, questions answered & plan of care reviewed with OSCAR SMITH.
[2020-05-21] MEDS: K and/or MAG REPLACEMENT MC SCH (19:26)
[2020-05-21] MEDS: lactulose 20gm/30ml cup PO SCH (19:48)
[2020-05-21] MEDS ORDERED: magnesium oxide 400mg tablet PO PRN (19:55)
[2020-05-21 20:00] VITALS: BP 145/54
[2020-05-21] MEDS ORDERED: lactulose 20gm/30ml cup PO SCH (20:00)
[2020-05-21] MEDS: ferrous sulfate 325mg tablet PO SCH (20:00)
[2020-05-21] MEDS: rifaximin 550mg tablet PO SCH (20:00)
[2020-05-21] MEDS ORDERED: haloperidol lactate 5mg/ml inj IM PRN (21:10)
[2020-05-21] MEDS ORDERED: haloperidol 5mg tablet PO PRN (21:10)
[2020-05-21] MEDS ORDERED: thiamine inj. 100 MG in normal saline 100ml IV soln 100 ML IV ONE (21:10)
[2020-05-21] MEDS: LORazepam 2 mg/ml vial IV PRN (21:47)
[2020-05-22] MEDS: lactulose 20gm/30ml cup PO SCH ×4 (02:19→20:54)
[2020-05-22] MEDS: LORazepam 2 mg/ml vial IV PRN (05:10)
[2020-05-22 05:47] LABS: BASOPHILS % (AUTO) 0.3 % (0-1); EOSINOPHILS # (AUTO) 0.2 X10'3 (0-0.9); EOSINOPHILS % (AUTO) 2.4 % (0-6); HEMATOCRIT 23.7 % (35.0-45.0); HEMOGLOBIN 8.3 g/dl (12.0-16.0); LYMPHOCYTES # (AUTO) 0.7 X10'3 (1.1-4.8); LYMPHOCYTES % (AUTO) 10.1 % (21-51); MEAN CORPUSCULAR HGB CONC 34.8 g/dL (33.0-36.5); MEAN CORPUSCULAR VOLUME 100.5 FL (78-98); MEAN PLATELET VOLUME 10.1 FL (7.4-10.4); MONOCYTES % (AUTO) 14.2 % (2-12); NEUTROPHILS # (AUTO) 4.9 X10'3 (1.8-7.7); PLATELET COUNT 84 X10'3 (140-440); RED BLOOD COUNT 2.36 X10'6 (4.20-5.60); RED CELL DISTRIBUTION WIDTH 15.9 % (11.5-14.5); WHITE BLOOD COUNT 6.8 X10'3 (4.5-11.0)
[2020-05-22 06:01] LABS: ALANINE AMINOTRANSFERASE 33 U/L (12-78); ALBUMIN 2.5 G/DL (3.4-5.0); ALBUMIN/GLOBULIN RATIO 0.8 (1.1-1.5); ALKALINE PHOSPHATASE 124 IU/L (46-116); ANION GAP 8 (8-16); ASPARTATE AMINO TRANSFERASE 37 U/L (10-37); BLOOD UREA NITROGEN 50 MG/DL (7-18); BUN/CREATININE RATIO 14.6 (6.6-38.0); CALCIUM 9.7 MG/DL (8.5-10.1); CHLORIDE 103 MMOL/L (99-107); CREATININE 3.43 MG/DL (0.40-0.90); GLUCOSE 104 MG/DL (70-104); MAGNESIUM 2.9 MG/DL (1.5-2.4); POTASSIUM 4.9 MMOL/L (3.5-5.1); SODIUM 133 MMOL/L (135-145); TOTAL CARBON DIOXIDE 22.1 MMOL/L (24-32); TOTAL PROTEIN 5.8 G/DL (6.4-8.2); eGFR 14 ML/MIN
--- NOTE | 2020-05-22 06:41 | NUR ---
Problems reprioritized. Patient report given, questions answered & plan of care reviewed with Perri SMITH.
--- NOTE | 2020-05-22 06:57 | NUR ---
Patient in room [facility] 358. I have received report from pauly SMITH and had the opportunity to ask questions and assume patient care.
[2020-05-22 07:00] VITALS: BP 132/67
[2020-05-22] MEDS ORDERED: thiamine 100mg tablet PO SCH ×2 (08:00)
[2020-05-22] MEDS: rifaximin 550mg tablet PO SCH ×2 (08:00→20:00)
[2020-05-22] MEDS ORDERED: folic acid 1mg tablet PO SCH (08:00)
[2020-05-22] MEDS: ferrous sulfate 325mg tablet PO SCH ×2 (08:00→20:00)
[2020-05-22] MEDS ORDERED: thiamine inj. 100 MG, MVI, adult No.4 with vit. K 10 ML in dextrose 5% water 500ml 500 ML IV SCH ×3 (08:00)
[2020-05-22] MEDS ORDERED: multivitamins, therapeutics tablet PO SCH ×2 (08:00)
[2020-05-22] MEDS: K and/or MAG REPLACEMENT MC SCH ×2 (08:00→20:00)
[2020-05-22] MEDS ORDERED: PHYTONADIONE 100 MCG PO SCH (08:00)
[2020-05-22] MEDS ORDERED: folic acid 0.4mg tablet PO SCH (08:00)
[2020-05-22 11:00] VITALS: BP 105/60
--- NOTE | 2020-05-22 18:46 | NUR ---
time taken to talk with patients outsole caser paged about further help with patient on discharge. patient appeared more clear of thought as day progressed, able to converse with staff and answer questions. Commenced on CL diet per DR Gonzalez, up in chair and ambulated 40 ft with PT. VSS. Report given to Edna SMITH
--- NOTE | 2020-05-22 19:13 | NUR ---
I have received report from Perri SMITH and had the opportunity to ask questions and assume patient care.
[2020-05-22 20:00] VITALS: BP 132/76
[2020-05-22] MEDS: lactobacillus rhamnosus 10,000 MMU CELLS/CAPSULE PO SCH (20:00)
[2020-05-22 20:01] VITALS: BP 138/79
[2020-05-22] MEDS ORDERED: thiamine inj. 100 MG, MVI, adult No.4 with vit. K 10 ML in dextrose 5% water 500ml 500 ML IV ONE ×3 (20:50)
[2020-05-23] VITALS: BP 138/79
[2020-05-23 00:01] VITALS: BP 132/76
[2020-05-23] MEDS: lactulose 20gm/30ml cup PO SCH ×4 (02:22→20:00)
[2020-05-23 05:04] LABS: BASOPHILS % (AUTO) 0.7 % (0-1); EOSINOPHILS # (AUTO) 0.2 X10'3 (0-0.9); EOSINOPHILS % (AUTO) 3.2 % (0-6); HEMATOCRIT 22.3 % (35.0-45.0); HEMOGLOBIN 7.6 g/dl (12.0-16.0); LYMPHOCYTES # (AUTO) 0.5 X10'3 (1.1-4.8); LYMPHOCYTES % (AUTO) 10.1 % (21-51); MEAN CORPUSCULAR HEMOGLOBIN 34.1 PG (27.0-31.0); MEAN CORPUSCULAR VOLUME 100.3 FL (78-98); MEAN PLATELET VOLUME 10.2 FL (7.4-10.4); MONOCYTES # (AUTO) 0.8 X10'3 (0-0.9); MONOCYTES % (AUTO) 16.6 % (2-12); NEUTROPHILS # (AUTO) 3.4 X10'3 (1.8-7.7); NEUTROPHILS % (AUTO) 69.4 % (42-75); PLATELET COUNT 71 X10'3 (140-440); RED BLOOD COUNT 2.22 X10'6 (4.20-5.60); WHITE BLOOD COUNT 4.8 X10'3 (4.5-11.0)
[2020-05-23 05:15] LABS: ALANINE AMINOTRANSFERASE 31 U/L (12-78); ALBUMIN 2.4 G/DL (3.4-5.0); ALKALINE PHOSPHATASE 119 IU/L (46-116); ANION GAP 8 (8-16); ASPARTATE AMINO TRANSFERASE 39 U/L (10-37); BLOOD UREA NITROGEN 46 MG/DL (7-18); BUN/CREATININE RATIO 13.3 (6.6-38.0); CALCIUM 9.7 MG/DL (8.5-10.1); CHLORIDE 104 MMOL/L (99-107); CREATININE 3.46 MG/DL (0.40-0.90); GLUCOSE 124 MG/DL (70-104); MAGNESIUM 2.9 MG/DL (1.5-2.4); POTASSIUM 4.5 MMOL/L (3.5-5.1); SODIUM 134 MMOL/L (135-145); TOTAL CARBON DIOXIDE 21.9 MMOL/L (24-32); eGFR 14 ML/MIN
[2020-05-23 05:18] LABS: ALBUMIN/GLOBULIN RATIO 0.8 (1.1-1.5); TOTAL PROTEIN 5.6 G/DL (6.4-8.2)
--- NOTE | 2020-05-23 06:30 | NUR ---
Problems reprioritized. Patient report given, questions answered & plan of care reviewed with Rosalia SMITH.
--- NOTE | 2020-05-23 06:30 | NUR ---
Patient in room [facility] 358. I have received report from SARAH Bishop and had the opportunity to ask questions and assume patient care.
[2020-05-23 07:11] VITALS: BP 140/84
[2020-05-23] MEDS: K and/or MAG REPLACEMENT MC SCH ×2 (08:00→20:00)
[2020-05-23] MEDS: ferrous sulfate 325mg tablet PO SCH ×2 (08:41→20:18)
[2020-05-23] MEDS: thiamine 100mg tablet PO SCH ×2 (08:41→20:19)
[2020-05-23] MEDS: rifaximin 550mg tablet PO SCH ×2 (08:41→20:18)
[2020-05-23] MEDS: lactobacillus rhamnosus 10,000 MMU CELLS/CAPSULE PO SCH ×2 (08:41→20:18)
[2020-05-23] MEDS: multivitamins, therapeutics tablet PO SCH ×2 (08:41→20:18)
[2020-05-23] MEDS: folic acid 1mg tablet PO SCH ×2 (08:42→20:18)
[2020-05-23 09:34] LABS: PLATELET ESTIMATE DECREASED
[2020-05-23 09:37] LABS: BURR CELLS 1+; HYPOCHROMASIA 1+; SCHISTOCYTES FEW
[2020-05-23 11:00] VITALS: BP 133/81
[2020-05-23] MEDS: acetaminophen 325mg tablet PO PRN (11:40)
--- NOTE | 2020-05-23 14:40 | NUR ---
Malnutrition consult: Pt reports greater than or equal to 34 lb wt loss with decreased appetite per malnutrition risk screen with RN. 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 Pt with h/o multiple paracentesis and thoracentesis per records. Most recently documented with 8.5 L fluid removal from paracentesis 05/09. Changes in weight likely r/t changes in fluid status. Pt currently receiving routine Thiamine, Folic acid, and MVI. Patient's diet has just been advanced to mechanical soft chop all with thin liquids per ST recs, pending first meal since diet advancement. Pt initially documented with 75% PO intake on clear liquid diet despite ST initially recommending NPO. Pt documented with no significant decrease in muscle strength though with mild generalized 2+ edema. Pt with no fat or muscle wasting. Pt currently lacks a minimum of two criteria for malnutrition. Will continue to follow. Addendum: 05/23/20 at [address] Amended: Links added.
[2020-05-23 18:00] VITALS: BP 122/68
--- NOTE | 2020-05-23 18:27 | NUR ---
Problems reprioritized. Patient report given, questions answered & plan of care reviewed with SARAH Jim.
[2020-05-23] MEDS ORDERED: LORazepam 1 MG tablet PO PRN (21:10)
[2020-05-23] MEDS ORDERED: LORazepam 2 mg/ml vial IV PRN (21:10)
[2020-05-23] MEDS ORDERED: temazepam 15mg capsule PO PRN (21:40)
[2020-05-24] VITALS (7 sets, daily range): BP systolic 109–130; BP diastolic 50–71
[2020-05-24] MEDS: lactulose 20gm/30ml cup PO SCH ×2 (02:00→07:30)
--- NOTE | 2020-05-24 06:06 | NUR ---
Problems reprioritized. Patient report given, questions answered & plan of care reviewed with Rosalia SMITH. Addendum: 05/24/20 at 0606 by Diandra Mendoza RN Amended: Links added.
[2020-05-24 06:22] LABS: ALANINE AMINOTRANSFERASE 32 U/L (12-78); ALBUMIN 2.1 G/DL (3.4-5.0); ALKALINE PHOSPHATASE 115 IU/L (46-116); ANION GAP 7 (8-16); ASPARTATE AMINO TRANSFERASE 40 U/L (10-37); BLOOD UREA NITROGEN 43 MG/DL (7-18); BUN/CREATININE RATIO 13.4 (6.6-38.0); CALCIUM 9.3 MG/DL (8.5-10.1); CHLORIDE 104 MMOL/L (99-107); CREATININE 3.21 MG/DL (0.40-0.90); GLUCOSE 101 MG/DL (70-104); MAGNESIUM 2.7 MG/DL (1.5-2.4); POTASSIUM 4.6 MMOL/L (3.5-5.1); SODIUM 134 MMOL/L (135-145); TOTAL CARBON DIOXIDE 23.2 MMOL/L (24-32); eGFR 15 ML/MIN
[2020-05-24 06:27] LABS: ALBUMIN/GLOBULIN RATIO 0.7 (1.1-1.5); TOTAL PROTEIN 5.2 G/DL (6.4-8.2)
--- NOTE | 2020-05-24 06:27 | NUR ---
Patient in room [facility] 340. I have received report from SARAH Jim and had the opportunity to ask questions and assume patient care.
[2020-05-24 06:33] LABS: BASOPHILS % (AUTO) 1.1 % (0-1); EOSINOPHILS # (AUTO) 0.1 X10'3 (0-0.9); EOSINOPHILS % (AUTO) 3.5 % (0-6); HEMOGLOBIN 7.5 g/dl (12.0-16.0); LYMPHOCYTES # (AUTO) 0.5 X10'3 (1.1-4.8); LYMPHOCYTES % (AUTO) 14.5 % (21-51); MEAN CORPUSCULAR HEMOGLOBIN 35.1 PG (27.0-31.0); MEAN CORPUSCULAR HGB CONC 34.7 g/dL (33.0-36.5); MEAN CORPUSCULAR VOLUME 101.2 FL (78-98); MEAN PLATELET VOLUME 9.7 FL (7.4-10.4); MONOCYTES # (AUTO) 0.6 X10'3 (0-0.9); MONOCYTES % (AUTO) 15.7 % (2-12); NEUTROPHILS # (AUTO) 2.4 X10'3 (1.8-7.7); NEUTROPHILS % (AUTO) 65.2 % (42-75); PLATELET COUNT 63 X10'3 (140-440); RED BLOOD COUNT 2.12 X10'6 (4.20-5.60); WHITE BLOOD COUNT 3.7 X10'3 (4.5-11.0)
--- NOTE | 2020-05-24 06:33 | NUR ---
Patient in room [facility] 340. I have received report from Diandra SMITH and had the opportunity to ask questions and assume patient care.
[2020-05-24 06:49] LABS: HEMATOCRIT 21.5 % (35.0-45.0)
[2020-05-24] MEDS: rifaximin 550mg tablet PO SCH (07:27)
[2020-05-24] MEDS: acetaminophen 325mg tablet PO PRN (07:27)
[2020-05-24 07:28] LABS: ANISOCYTOSIS 1+; PLATELET ESTIMATE DECREASED; POLYCHROMASIA FEW; SCHISTOCYTES 1+
[2020-05-24] MEDS: folic acid 1mg tablet PO SCH (07:28)
[2020-05-24] MEDS: ferrous sulfate 325mg tablet PO SCH (07:28)
[2020-05-24] MEDS: multivitamins, therapeutics tablet PO SCH (07:28)
[2020-05-24] MEDS: lactobacillus rhamnosus 10,000 MMU CELLS/CAPSULE PO SCH (07:29)
[2020-05-24] MEDS: thiamine 100mg tablet PO SCH (07:29)
[2020-05-24] MEDS: K and/or MAG REPLACEMENT MC SCH (07:34)
[2020-05-24] MEDS ORDERED: FURO40TA4 PO (10:10)
[2020-05-24] MEDS ORDERED: LACT10SO32 PO (10:10)
[2020-05-24] MEDS ORDERED: albumin (human) 25% 100 ML IV solution IV ONE (10:45)
[2020-05-24] MEDS ORDERED: albumin (human) 25% 100ml IV 100 ML IV ONE (10:45)
--- NOTE | 2020-05-24 11:00 | NUR ---
Paracentesis completed, 5L fluid removed. Pt tolerated well. Catheter DC'd, cannula intact. Post op vital signs initiated. Asael ALBARRAN notified of completed and amount of fluid removed.
--- NOTE | 2020-05-24 12:55 | NUR ---
Patient is stable for discharged per MD orders. All discharge instructions reviewed with patient and all questions answered. Patient was instructed to follow up with PCP within one week of discharge. New prescriptions called into [facility]. PIV discontinued. Belongings collected and sent with patient. Patient left in private vehicle with . Wheeled to lobby.
[2020-05-25] MEDS ORDERED: LORazepam 1 MG tablet PO PRN (21:10)
[2020-05-25] MEDS ORDERED: LORazepam 2 mg/ml vial IV PRN (21:10)
== END 2020-05-24 12:56 | disposition home health service (06) | DRG 280 ==
LOC: ER 08:25 → ED HOLD 10:09 → SUR 3N 14:15
PROVIDERS: ADMIT Family Medicine; ATTEND Family Medicine
PROC: 0W9G3ZZ Drainage of Peritoneal Cavity, Percutaneous Approach (ICD-10-PCS; principal; 2020-05-24)
DX: K70.40 Alcoholic hepatic failure without coma (principal); K70.31 Alcoholic cirrhosis of liver with ascites; I85.10 Secondary esophageal varices without bleeding; G93.41 Metabolic encephalopathy; E87.1 Hypo-osmolality and hyponatremia; E87.5 Hyperkalemia; I13.0 Hypertensive heart and chronic kidney disease with heart failure and stage 1 through stage 4 chronic kidney disease, or unspecified chronic kidney disease; I50.9 Heart failure, unspecified; F41.9 Anxiety disorder, unspecified; N18.4 Chronic kidney disease, stage 4 (severe); D63.8 Anemia in other chronic diseases classified elsewhere; Z80.0 Family history of malignant neoplasm of digestive organs; Z80.3 Family history of malignant neoplasm of breast; Z80.51 Family history of malignant neoplasm of kidney; Z80.52 Family history of malignant neoplasm of bladder; Z82.49 Family history of ischemic heart disease and other diseases of the circulatory system; Z85.038 Personal history of other malignant neoplasm of large intestine; Z85.51 Personal history of malignant neoplasm of bladder; Z85.528 Personal history of other malignant neoplasm of kidney; Z87.442 Personal history of urinary calculi; Z90.710 Acquired absence of both cervix and uterus
CPT/HCPCS: 36415; 49083; 80053; 82140; 82948; 83735; 85008; 85025; 85610; 85730; 87081; 92508; 92616; 93005; 97110; 97116; 97161; 97530; 97535; 99285; G0378; J2060; J3411; J7030; J7060; P9047